=== PATIENT | female | born 1990 | race Caucasian/White ===

== ENCOUNTER 2016-08-31 17:46 | Inpatient (IN) | payer OTHER ==
[~2016-08-31] VITALS: Ht 154.9 cm; Wt 55.3 kg
[2016-08-31] VITALS (24 sets, daily range): BP systolic 92–130; BP diastolic 49–88; PULSE 71–117
[~2016-08-31 17:46] MED LIST: BUPR2SUB SL; SUMA25 PO
[2016-08-31] MEDS ORDERED: LACTATED RINGER'S 1000 ML INJ 1,000 ML IV SCH (18:28)
[2016-08-31] MEDS ORDERED: LACTATED RINGER'S 1000 ML INJ 1,000 ML IV PRN (18:28)
[2016-08-31] MEDS ORDERED: LIDOCAINE HCL 1% 50 ML VIAL INFIL PRN (18:30)
[2016-08-31] MEDS ORDERED: OXYTOCIN 30 UNITS-500ML PREMIX 500 ML IV ONE (18:30)
[2016-08-31] MEDS ORDERED: LIDOCAINE HCL 1% 50 ML VIAL I-DERMAL PRN (18:30)
[2016-08-31] MEDS ORDERED: SODIUM CHLORID 0.9% 500 ML INJ 500 ML IV PRN (18:30)
[2016-08-31] MEDS ORDERED: CITRIC ACID-SODIUM CITRATE LIQ 30 ML UDC PO SCH (18:30)
[2016-08-31] MEDS ORDERED: MINERAL OIL 10 ML VIAL TOPICAL PRN (18:30)
[2016-08-31] MEDS ORDERED: ONDANSETRON HCL 4 MG/2 ML VIAL IV PRN (18:30)
[2016-08-31] MEDS ORDERED: SODIUM CHLOR 0.9% 1000 ML INJ 1,000 ML IV PRN (18:48)
[2016-08-31 19:32] LABS: AUTOMATED NEUTROPHIL # 9.9 TH/MM3 (1.8-7.7); BASOPHIL # 0.1 TH/MM3 (0-0.2); BASOPHIL % 0.4 % (0.0-2.0); EOSINOPHIL % 0.3 % (0.0-4.0); HEMO FLAGS DIFF FINAL; LYMPH % 17.3 % (9.0-44.0); LYMPHOCYTE # 2.2 TH/MM3 (1.0-4.8); MEAN CELL VOLUME 89.2 FL (80.0-100.0); MEAN CORPUSCULAR HEMOGLOBIN 29.3 PG (27.0-34.0); MEAN CORPUSCULAR HGB CONC 32.8 % (32.0-36.0); PLATELET COUNT 222 TH/MM3 (150-450); RED BLOOD COUNT 3.81 MIL/MM3 (4.00-5.30); RED CELL DISTRIBUTION WIDTH 13.5 % (11.6-17.2); WHITE BLOOD COUNT 12.9 TH/MM3 (4.0-11.0)
[2016-08-31 19:34] LABS: BLOOD, URINE NEG (NEG); COMMENT (UR) CULT NOT INDICATED; CULTURE IF INDICATED CULT NOT INDICATED; GLUCOSE,URINE NEG (NEG); KETONE, URINE NEG (NEG); NITRITE,URINE NEG (NEG); SQUAMOUS EPITHELIAL CELL URINE <1 /hpf (0-5); URINE COLOR LIGHT-YELLOW (YELLW/STRAW)
[2016-08-31] MEDS ORDERED: fentaNYL 2MCG-BUPIV 0.125% INJ 100 ML ONE (19:35)
[2016-08-31 19:42] LABS: AMPHETAMINE, URINE NEG (NEG); BARBITURATES, URINE NEG (NEG); COCAINE, URINE NEG (NEG)
--- NOTE | 2016-08-31 20:01 | PD ---
HPI Chief Complaint Labor Date Seen: Aug 31, 2016 Time Seen: 19:48 (Sarah Zee MD R1) Travel History International Travel<30 Days: No Contact w/Intl Traveler<30Days: No Known Affected Area: No (Sarah Zee MD R1) History of Present Illness HPI Patient is a 26 year old at 38 and 3/7 weeks gestation, BETHANY 09/11/2016, who presents to the OB ED with labor pains. She denies leakage of fluid, vaginal bleeding, and contractions. She feels baby moving regularly. She denies WELCH/N/V/D /fever/sick contacts/SOB/calf pain/dizziness/seeing spots. OB care is with [facility] (Dr. Petersen) and reports normal PNC. She is taking Subutex 8mg daily since at least 2014 (reports some periods of taking up to 16mg daily prior to this ). She endorses tobacco use as well. Para: 1 : 4 (Sarah Zee MD R1) History Past Medical History Medical History: Denies Significant Hx (Sarah Zee MD R1) Obstetric History Obstetric History One elective AB One ectopic 1 term in 2014, term female, nursery/NICU for 4 total weeks for withdrawal treatment (Sarah Zee MD R1) Past Surgical History Narrative Surgical Left fallopian tube removed in 2011 (ectopic) (Sarah Zee MD R1) Family History Narrative Family History Mother and father with lupus Mother with RA as well (Sarah Zee MD R1) Social History Alcohol Use: No Tobacco Use: Yes (1 cigarette per day) Substance Abuse: Yes (Subutex 8 mg daily entire , 16 mg prior to knowing she was ) (Sarah Zee MD R1) Allergies-Medications (Allergen,Severity, Reaction): Coded Allergies: No Known Allergies (Verified , 03/29/15) Home Meds Reported Medications Buprenorphine 2 mg tab 2 mg Tab1 Tab SL BID 03/04/15 Discontinued Scripts Sumatriptan Succinate (Imitrex 25 Mg Tab)25 Mg Tab25 Mg PO BID PRN (MIGRAINE HEADACHE) #10 TAB MAY REPEAT X 1 IN 2 HOURS Prov:Rosemary Goodman MD 11/01/15 Review of Systems Except as stated in HPI: all other systems reviewed are Neg (Sarah Zee MD R1) Physical Exam Narrative GENERAL: Well-nourished, well-developed female who appears mildly uncomfortable. SKIN: Warm and dry. No rashes. HEAD: Normocephalic and atraumatic. EYES: No scleral icterus. No injection or drainage. ENT: No nasal drainage noted. Mucous membranes pink. Airway patent. NECK: Supple, trachea midline. No JVD. CARDIOVASCULAR: Regular rate and rhythm without murmurs, gallops, or rubs. RESPIRATORY: Breath sounds equal bilaterally. No accessory muscle use. BREASTS: Bilateral exam showed no masses , no retractions, no nipple discharge. ABDOMEN/GI: Abdomen soft, non-tender, bowel sounds present, no rebound, no guarding GENITOURINARY: External Genitalia: intact and normal in appearance Cervix: 4/80%/1 Presentation: Vertex Membranes: Intact Uterine Contractions: irregular CTX, irritability noted FHT's: Category: 1 Baseline: 130 Reactive: y to 150 Variability: mod Decels: absent EXTREMITIES: No cyanosis or edema. BACK: Nontender without obvious deformity. No CVA tenderness. NEUROLOGICAL: Awake and alert. Motor and sensory grossly within normal limits. Five out of 5 muscle strength in all muscle groups. Normal speech. (Sarah Zee MD R1) Data Data Vital Signs Reviewed: Yes (BP 130/88, pulse 83) Orders Admit To Inpatient (08/31/16 ) Code Status (08/31/16 18:28) Vital Signs (Adult) .Per protocol (08/31/16 18:28) Heart (08/31/16 18:28) Amnioinfusion (08/31/16 18:28) Urinary Catheter Management .ONCE (08/31/16 18:28) Diet Npo (08/31/16 Dinner) Lactated Ringer's 1000 Ml Inj (Lr 1000 M (08/31/16 18:28) Lactated Ringer's 1000 Ml Inj (Lr 1000 M (08/31/16 18:28) Sodium Chlorid 0.9% 500 Ml Inj (Ns 500 M (08/31/16 18:30) Sodium Chlor 0.9% 1000 Ml Inj (Ns 1000 M (08/31/16 18:48) Lidocaine 1% Inj (50 Ml) (Xylocaine 1% I (08/31/16 18:30) Citric Acid-Sodium Citrate Liq (Bicitra (08/31/16 18:30) Ondansetron Inj (Zofran Inj) (08/31/16 18:30) Fentanyl Inj (Fentanyl Inj) (08/31/16 18:30) Fentanyl Inj (Fentanyl Inj) (08/31/16 18:30) Complete Blood Count With Diff (08/31/16 18:28) Hold Clot (08/31/16 18:28) Abo/Rh Blood Type (08/31/16 18:28) Urinalysis - C+S If Indicated (08/31/16 18:28) Rapid Plasma Regin (Rpr) W Ttr (08/31/16 18:28) Hepatitis Profile (08/31/16 18:28) No Care Spec Serology (08/31/16 18:28) Resp Oxygen Non Rebreathe Mask (08/31/16 ) ^ Epidural / Intrathecal Infus (08/31/16 18:28) Oxytocin 30 Units-500ml Premix (Pitocin (08/31/16 18:30) Lidocaine 1% Inj (50 Ml) (Xylocaine 1% I (08/31/16 18:30) Light Mineral Oil (Muri-Lube Oil) (08/31/16 18:30) Group B Strep Pcr (Rapid) (08/31/16 18:28) Inpatient Certification (08/31/16 ) Ob/Psych Drug Screen, Urine (08/31/16 18:31) Ob (2e) Additional Admit Info (08/31/16 19:30) Fentanyl 2mcg-Bupiv 0.125% Inj (Fentanyl (08/31/16 19:35) Ur Bath Salts (08/31/16 18:35) Ur Heroin (08/31/16 18:35) Ur K2 Spice (08/31/16 18:35) Ur Ecstasy (08/31/16 18:35) Phencyclidine Urine (Pcp) (08/31/16 18:35) (Sarah Zee MD R1) MDM Medical Record Reviewed: Yes Narrative Course / MDM 26-year-old 38 weeks and 3 days who presents to the OB ED with contractions and is admitted for labor. Intrauterine : Category 1 tracing Vaginal delivery expected Memory is intact Desires epidural for pain CBC pending U/A pending All labs ordered given no access to labs from [facility] IV fluids Monitor heart tones Routine care Subutex use complicating : Reports 8 mg daily, up to 16 mg in early Tobacco use complicating GBS unknown: Rapid GBS ordered, will start IV penicillin per protocol if positive SDW Dr. Landon (Sarah Zee MD R1) Attending Attestation The exam, history, and the medical decision-making described in the above note were completed with the assistance of the resident provider. I reviewed and agree with the findings presented. I attest that I had a [id number] encounter with the patient on the same day, and personally performed and documented my assessment and findings in the medical record. (Juan Landon MD) Sarah Zee MD R1 Aug 31, 2016 20:01 Juan Landon MD Aug 31, 2016 20:08
[2016-08-31] MEDS ORDERED: ePHEDrine/NS 25 MG/5 ML SYR IV PRN (21:00)
[2016-08-31] MEDS ORDERED: NO SYSTEM NARCOTICS PRN (21:00)
[2016-08-31] MEDS ORDERED: fentaNYL 2MCG-BUPIV 0.125% 100 ML EPIDURAL SCH (21:00)
[2016-08-31] MEDS ORDERED: DO NOT ADMINISTER ANTICOAGULANTS PRN (21:00)
--- NOTE | 2016-08-31 23:09 | PD.LABORPN ---
Subjective Subjective 26-year-old 38 weeks and 3 days who presented to the OB ED with contractions and is admitted for labor. Subutex use complicating : Reports 8 mg daily, up to 16 mg in early Tobacco use complicating GBS negative: Rapid GBS ordered, decided to AROM and start pitocin after GBS returned negative. AROM discussed with patient who consented to AROM. Objective Vital Signs Vital Signs Date Time Temp Pulse Resp B/P Pulse Ox O2 Delivery O2 Flow Rate FiO2 08/31/16 22:45 76 110/73 08/31/16 22:30 74 108/78 08/31/16 22:15 71 111/74 08/31/16 22:00 76 109/75 08/31/16 21:45 102 109/71 08/31/16 21:30 117 112/85 08/31/16 21:15 92 115/73 08/31/16 21:11 82 114/68 08/31/16 21:10 88 92/49 08/31/16 21:05 89 115/82 08/31/16 21:00 81 111/74 08/31/16 21:00 94 08/31/16 20:55 106 08/31/16 20:55 97 114/70 08/31/16 20:50 90 08/31/16 20:50 82 124/84 08/31/16 20:45 107 103/76 08/31/16 20:45 106 08/31/16 20:40 100 08/31/16 20:40 117 106/71 08/31/16 20:35 96 110/68 08/31/16 20:35 89 08/31/16 20:30 89 119/74 08/31/16 20:30 87 08/31/16 20:25 89 116/74 08/31/16 20:25 84 08/31/16 20:24 88 119/77 08/31/16 19:35 83 130/88 Objective Pelvic Exam: Cervix: [anterior] Dilatation: [5cm] Effacement: [80%] Station: [0] Presentation: [vertex] Membranes: [artificially ruptured with moderate clear odorless ROM] Uterine Contractions: [inconsistent, fewer than q10min] FHT's: Category: [Category I] Baseline: [125] Reactive: [reactive] Variability: [moderate] Decels: [none] Assessment/Plan Problem List: (1) Labor and delivery indication for care or intervention (2) Labor and delivery, indication for care (3) Tobacco use complicating (4) complicated by subutex maintenance, antepartum Assessment and Plan 26-year-old 38 weeks and 3 days who presented to the OB ED with contractions and is admitted for labor. Epidural in place. GBS negative, so AROM and IUPC placed, and can start Pitocin. 1. Subutex use complicating : Reports 8 mg daily, up to 16 mg in early 2. Tobacco use complicating 3. GBS negative: Rapid GBS returned negative, so decided to AROM and start Pitocin. AROM discussed with patient who consented to AROM. Artificially ruptured with moderate clear odorless ROM. IUPC also placed at that time. -anticipate -continue Pitocin s/d/w Baldomero Bernard MD R1 Aug 31, 2016 23:09
--- NOTE | 2016-08-31 23:13 | HHI.HP ---
History & Physical H&P HPI Chief Complaint Labor Date Seen: Aug 31, 2016 Time Seen: 19:48 (Sarah Zee MD R1) Travel History International Travel<30 Days: No Contact w/Intl Traveler<30Days: No Known Affected Area: No (Sarah Zee MD R1) History of Present Illness HPI Patient is a 26 year old at 38 and 3/7 weeks gestation, BETHANY 09/11/2016, who presents to the OB ED with labor pains. She denies leakage of fluid, vaginal bleeding, and contractions. She feels baby moving regularly. She denies WELCH/N/V/D /fever/sick contacts/SOB/calf pain/dizziness/seeing spots. OB care is with [facility] (Dr. Petersen) and reports normal PNC. She is taking Subutex 8mg daily since at least 2014 (reports some periods of taking up to 16mg daily prior to this ). She endorses tobacco use as well. Para: 1 : 4 (Sarah Zee MD R1) History Past Medical History Medical History: Denies Significant Hx (Sarah Zee MD R1) Obstetric History Obstetric History One elective AB One ectopic 1 term in 2014, term female, nursery/NICU for 4 total weeks for withdrawal treatment (Sarah Zee MD R1) Past Surgical History Narrative Surgical Left fallopian tube removed in 2011 (ectopic) (Sarah Zee MD R1) Family History Narrative Family History Mother and father with lupus Mother with RA as well (Sarah Zee MD R1) Social History Alcohol Use: No Tobacco Use: Yes (1 cigarette per day) Substance Abuse: Yes (Subutex 8 mg daily entire , 16 mg prior to knowing she was ) (Sarah Zee MD R1) Allergies-Medications (Allergen,Severity, Reaction): Coded Allergies: No Known Allergies (Verified , 03/29/15) Home Meds Reported Medications Buprenorphine 2 mg tab 2 mg Tab1 Tab SL BID 03/04/15 Discontinued Scripts Sumatriptan Succinate (Imitrex 25 Mg Tab)25 Mg Tab25 Mg PO BID PRN (MIGRAINE HEADACHE) #10 TAB MAY REPEAT X 1 IN 2 HOURS Prov:Rosemary Goodman MD 11/01/15 Review of Systems Except as stated in HPI: all other systems reviewed are Neg (Sarah Zee MD R1) Physical Exam Narrative GENERAL: Well-nourished, well-developed female who appears mildly uncomfortable. SKIN: Warm and dry. No rashes. HEAD: Normocephalic and atraumatic. EYES: No scleral icterus. No injection or drainage. ENT: No nasal drainage noted. Mucous membranes pink. Airway patent. NECK: Supple, trachea midline. No JVD. CARDIOVASCULAR: Regular rate and rhythm without murmurs, gallops, or rubs. RESPIRATORY: Breath sounds equal bilaterally. No accessory muscle use. BREASTS: Bilateral exam showed no masses , no retractions, no nipple discharge. ABDOMEN/GI: Abdomen soft, non-tender, bowel sounds present, no rebound, no guarding GENITOURINARY: External Genitalia: intact and normal in appearance Cervix: 4/80%/1 Presentation: Vertex Membranes: Intact Uterine Contractions: irregular CTX, irritability noted FHT's: Category: 1 Baseline: 130 Reactive: y to 150 Variability: mod Decels: absent EXTREMITIES: No cyanosis or edema. BACK: Nontender without obvious deformity. No CVA tenderness. NEUROLOGICAL: Awake and alert. Motor and sensory grossly within normal limits. Five out of 5 muscle strength in all muscle groups. Normal speech. (Sarah Zee MD R1) Data Data Vital Signs Reviewed: Yes (BP 130/88, pulse 83) Orders Admit To Inpatient (08/31/16 ) Code Status (08/31/16 18:28) Vital Signs (Adult) .Per protocol (08/31/16 18:28) Heart (08/31/16 18:28) Amnioinfusion (08/31/16 18:28) Urinary Catheter Management .ONCE (08/31/16 18:28) Diet Npo (08/31/16 Dinner) Lactated Ringer's 1000 Ml Inj (Lr 1000 M (08/31/16 18:28) Lactated Ringer's 1000 Ml Inj (Lr 1000 M (08/31/16 18:28) Sodium Chlorid 0.9% 500 Ml Inj (Ns 500 M (08/31/16 18:30) Sodium Chlor 0.9% 1000 Ml Inj (Ns 1000 M (08/31/16 18:48) Lidocaine 1% Inj (50 Ml) (Xylocaine 1% I (08/31/16 18:30) Citric Acid-Sodium Citrate Liq (Bicitra (08/31/16 18:30) Ondansetron Inj (Zofran Inj) (08/31/16 18:30) Fentanyl Inj (Fentanyl Inj) (08/31/16 18:30) Fentanyl Inj (Fentanyl Inj) (08/31/16 18:30) Complete Blood Count With Diff (08/31/16 18:28) Hold Clot (08/31/16 18:28) Abo/Rh Blood Type (08/31/16 18:28) Urinalysis - C+S If Indicated (08/31/16 18:28) Rapid Plasma Regin (Rpr) W Ttr (08/31/16 18:28) Hepatitis Profile (08/31/16 18:28) No Care Spec Serology (08/31/16 18:28) Resp Oxygen Non Rebreathe Mask (08/31/16 ) ^ Epidural / Intrathecal Infus (08/31/16 18:28) Oxytocin 30 Units-500ml Premix (Pitocin (08/31/16 18:30) Lidocaine 1% Inj (50 Ml) (Xylocaine 1% I (08/31/16 18:30) Light Mineral Oil (Muri-Lube Oil) (08/31/16 18:30) Group B Strep Pcr (Rapid) (08/31/16 18:28) Inpatient Certification (08/31/16 ) Ob/Psych Drug Screen, Urine (08/31/16 18:31) Ob (2e) Additional Admit Info (08/31/16 19:30) Fentanyl 2mcg-Bupiv 0.125% Inj (Fentanyl (08/31/16 19:35) Ur Bath Salts (08/31/16 18:35) Ur Heroin (08/31/16 18:35) Ur K2 Spice (08/31/16 18:35) Ur Ecstasy (08/31/16 18:35) Phencyclidine Urine (Pcp) (08/31/16 18:35) (Sarah Zee MD R1) MDM Medical Record Reviewed: Yes Narrative Course / MDM 26-year-old 38 weeks and 3 days who presents to the OB ED with contractions and is admitted for labor. Intrauterine : Category 1 tracing Vaginal delivery expected Membranes intact Epidural for pain in place CBC shows mild leukocytosis and anemia U/A reassuring All labs ordered given no access to labs from [facility] IV fluids Monitor heart tones Routine care Subutex use complicating : Reports 8 mg daily, up to 16 mg in early Tobacco use complicating GBS negative: Rapid GBS ordered. After GBS negative, decided to AROM and start pitocin. SDW Dr. Colunga (Baldomero Flowers MD R1) H&P The exam, history, and the medical decision-making described in the above note were completed with the assistance of the resident provider. I reviewed and agree with the findings presented. I attest that I had a [id number] encounter with the patient on the same day, and personally performed and documented my assessment and findings in the medical record. (Juan Landon MD) Baldomero Flowers MD R1 Aug 31, 2016 23:13 Juan Landon MD Sep 01, 2016 00:16
[2016-09-01] VITALS (12 sets, daily range): BP systolic 90–123; BP diastolic 64–86; PULSE 68–188; RESP 18; TEMP 98.2–98.4
--- NOTE | 2016-09-01 01:08 | PD.OB.DELI ---
Delivery Date: Sep 01, 2016 Anesthesia: Epidural Episiotomy: None Vaginal Delivery: Normal Presentation: Occiput anterior Nuchal Cord: None Delayed cord clamping (45 sec): Yes : Female One Minute : 8 Five Minute : 8 Weight: 2750g Placenta: Spontaneous delivery, Intact, 3 vessel cord Laceration: Vaginal laceration (superficial periurethral lacerations hemostatic without intervention) Additional Information Uncomplicated performed by Dr. Flowers. Assisted by Dr. Colunga. Supervised by Dr. Landon. (Baldomero Flowers MD R1) Attestation I was present and directly supervised the entire delivery. (Juan Landon MD) Baldomero Flowers MD R1 Sep 01, 2016 01:08 Juan Landon MD Sep 01, 2016 01:15
[2016-09-01] MEDS ORDERED: SODIUM CHLORIDE 0.9% FLUSH 10 ML FLUSH IV FLUSH PRN (01:15)
[2016-09-01] MEDS ORDERED: ZOLPIDEM TARTRATE 5 MG TAB PO PRN (01:15)
[2016-09-01] MEDS ORDERED: ONDANSETRON ODT 4 MG TAB PO PRN (01:15)
[2016-09-01] MEDS ORDERED: DOCUSATE SODIUM 50 MG/SENNA 8.6 MG TAB PO PRN (01:15)
[2016-09-01] MEDS ORDERED: oxyCODONE/ACETAMINOPHEN 5 MG/325 MG TAB PO PRN ×2 (01:15)
[2016-09-01] MEDS ORDERED: IBUPROFEN 800 MG TAB PO PRN (01:15)
[2016-09-01] MEDS ORDERED: ALUMINUM/MAGNESIUM/SIMETH 30 ML CUP PO PRN (01:15)
[2016-09-01] MEDS ORDERED: WITCH HAZEL 50%/GLYCERIN 12.5% 40 PAD JAR TOPICAL PRN (01:15)
[2016-09-01] MEDS ORDERED: BENZOCAINE 20% TOPICAL SPRAY 60 ML CAN TOPICAL PRN (01:15)
--- NOTE | 2016-09-01 06:56 | HHI.OB ---
Subjective Post Day: 0 Remarks day #0. AFVSS overnight. Decreased lochia. Denies dysuria. No breast tenderness. She is feeding the baby via breast. Appetite good. No nausea or vomiting. She has some pelvic pain and abdominal cramping. She is taking Tylenol as needed for this. She'll be bringing her Subutex in from home to take. Ambulating well. Denies calf pain or shortness of breath. Otherwise, she is doing well this morning and has no other concerns. (Sarah Zee MD R1) Objective Vitals/I&O Vital Signs Date Time Temp Pulse Resp B/P Pulse Ox O2 Delivery O2 Flow Rate FiO2 09/01/16 03:20 98.3 68 18 09/01/16 03:20 123/84 09/01/16 02:00 18 09/01/16 01:45 18 09/01/16 01:31 69 90/71 09/01/16 01:30 18 09/01/16 01:15 18 09/01/16 01:15 84 123/81 09/01/16 01:00 98.4 18 09/01/16 01:00 74 116/82 09/01/16 00:46 78 105/64 09/01/16 00:15 188 107/86 09/01/16 00:00 80 101/65 08/31/16 23:45 72 102/56 08/31/16 23:30 78 115/73 08/31/16 23:15 96 100/68 08/31/16 23:00 75 108/75 08/31/16 22:45 76 110/73 08/31/16 22:30 74 108/78 08/31/16 22:15 71 111/74 08/31/16 22:00 76 109/75 08/31/16 21:45 102 109/71 08/31/16 21:30 117 112/85 08/31/16 21:15 92 115/73 08/31/16 21:11 82 114/68 08/31/16 21:10 88 92/49 08/31/16 21:05 89 115/82 08/31/16 21:00 81 111/74 08/31/16 21:00 94 08/31/16 20:55 106 08/31/16 20:55 97 114/70 08/31/16 20:50 90 08/31/16 20:50 82 124/84 08/31/16 20:45 107 103/76 08/31/16 20:45 106 08/31/16 20:40 100 08/31/16 20:40 117 106/71 08/31/16 20:35 96 110/68 08/31/16 20:35 89 08/31/16 20:30 89 119/74 08/31/16 20:30 87 08/31/16 20:25 89 116/74 08/31/16 20:25 84 08/31/16 20:24 88 119/77 08/31/16 19:35 83 130/88 Objective Remarks GENERAL: Well-nourished, well-developed female in no apparent distress. CARDIOVASCULAR: Regular rate and rhythm without murmurs, gallops, or rubs. RESPIRATORY: Breath sounds equal bilaterally. No accessory muscle use. ABDOMEN/GI: Abdomen soft, non-tender. Fundus: Firm, non-tender at umbilicus. GENITOURINARY: Light to moderate bleeding. EXTREMITIES: No cyanosis or edema, non-tender, without signs of DVT. Medications and IVs Current Medications Medications (Trade) Dose Ordered Sig/Rashid Route Start Time Stop Time Status Last Admin (NS Flush) 2 ml BID IV FLUSH 09/01/16 09:00 (NS Flush) 2 ml UNSCH PRN IV FLUSH 09/01/16 01:15 (Tylenol) 650 mg Q4H PRN PO 09/01/16 01:15 (Motrin) 600 mg Q6H PRN PO 09/01/16 01:15 (Americaine 20% Top Spr) 1 spray Q4H PRN TOPICAL 09/01/16 01:15 (Tucks Pads) 1 applic QID PRN TOPICAL 09/01/16 01:15 (Yaritza-Colace) 2 tab Q12H PRN PO 09/01/16 01:15 (Ambien) 5 mg HS PRN PO 09/01/16 01:15 (M-M-R Ii Inj) 0.5 ml ONCE ONCE SQ 09/01/16 16:00 09/01/16 16:01 (Boostrix Inj) 0.5 ml ONCE ONCE IM 09/01/16 16:00 09/01/16 16:01 (Mag-Al Plus Susp Liq) 15 ml Q8H PRN PO 09/01/16 01:15 (Zofran Odt) 4 mg Q6H PRN PO 09/01/16 01:15 (Sarah Zee MD R1) Assessment/Plan Problem List: (1) Labor and delivery indication for care or intervention (2) Labor and delivery, indication for care (3) Tobacco use complicating (4) complicated by subutex maintenance, antepartum Assessment and Plan 26-year-old G4 P now 2 female who is PPD# 0 s/p . care: -Continue routine care. -Tylenol and Motrin PRN pain. -Encouraged OOB. Advised pelvic rest for 6 wks. -Re: ctrl, she would like to use Loestrin OCPs. -Anticipate discharge in 1-2 days. Subutex use complicating : Reports 8 mg daily, up to 16 mg in early . She will continue using her home medication when she brings it in Tobacco use complicating GBS negative Will discuss with Dr. Landon (Sarah Zee MD R1) Attending Attestation The exam, history, and the medical decision-making described in the above note were completed with the assistance of the resident provider. I reviewed and agree with the findings presented. I attest that I had a [id number] encounter with the patient on the same day, and personally performed and documented my assessment and findings in the medical record. (Juan Landon MD) Sarah Zee MD R1 Sep 01, 2016 06:56 Juan Landon MD Sep 01, 2016 08:51
[2016-09-01] MEDS: IBUPROFEN 600 MG TAB PO PRN ×3 (08:22→21:09)
[2016-09-01] MEDS: ACETAMINOPHEN 325 MG TAB PO PRN ×3 (08:23→21:09)
[2016-09-01] MEDS ORDERED: SODIUM CHLORIDE 0.9% FLUSH 10 ML FLUSH IV FLUSH SCH (09:00)
[2016-09-01 10:26] LABS: RAPID PLASMA REAGIN SCREEN NON-REACTIVE (NON-REACTVE)
[2016-09-01] MEDS ORDERED: DIPHTH/TETANUS/ACEL PERTUSSIS (BOOSTER) 0.5 ML VIAL/PFS IM ONE (16:00)
[2016-09-01] MEDS ORDERED: MEASLES, MUMPS, RUBELLA VACCINE 0.5 ML VIAL SQ ONE (16:00)
[2016-09-02] MEDS: BUPRENORPHINE 2 MG SL SCH ×2 (00:36→09:34)
[2016-09-02] MEDS: ACETAMINOPHEN 325 MG TAB PO PRN ×2 (01:49→09:34)
[2016-09-02] MEDS: IBUPROFEN 600 MG TAB PO PRN ×2 (03:20→09:33)
--- NOTE | 2016-09-02 07:06 | HHI.OB ---
Subjective Remarks day # 1 AFVSS overnight. Decreased lochia. Denies dysuria. No breast tenderness. She is feeding the baby via formula. Appetite good. No nausea or vomiting. Positive flatus/bowel movement. Ambulating well. Denies calf pain or shortness of breath. Otherwise, she is doing well this morning. ( Olga Aguilera MD R2) Objective Vitals/I&O Vital Signs Date Time Temp Pulse Resp B/P Pulse Ox O2 Delivery O2 Flow Rate FiO2 09/01/16 21:00 98.2 75 18 120/85 09/01/16 08:30 98.4 74 18 108/68 Objective Remarks GENERAL: Well-nourished, well-developed female in no apparent distress. CARDIOVASCULAR: Regular rate and rhythm without murmurs, gallops, or rubs. RESPIRATORY: Breath sounds equal bilaterally. No accessory muscle use. ABDOMEN/GI: Abdomen soft, non-tender. Fundus: Firm, non-tender at umbilicus. GENITOURINARY: Light to moderate bleeding. EXTREMITIES: No cyanosis or edema, non-tender, without signs of DVT. Medications and IVs Current Medications Medications (Trade) Dose Ordered Sig/Rashid Route Start Time Stop Time Status Last Admin (NS Flush) 2 ml BID IV FLUSH 09/01/16 09:00 (NS Flush) 2 ml UNSCH PRN IV FLUSH 09/01/16 01:15 (Tylenol) 650 mg Q4H PRN PO 09/01/16 01:15 09/02/16 01:49 (Motrin) 600 mg Q6H PRN PO 09/01/16 01:15 09/02/16 03:20 (Americaine 20% Top Spr) 1 spray Q4H PRN TOPICAL 09/01/16 01:15 (Tucks Pads) 1 applic QID PRN TOPICAL 09/01/16 01:15 (Yaritza-Colace) 2 tab Q12H PRN PO 09/01/16 01:15 09/01/16 08:23 (Ambien) 5 mg HS PRN PO 09/01/16 01:15 (Mag-Al Plus Susp Liq) 15 ml Q8H PRN PO 09/01/16 01:15 (Zofran Odt) 4 mg Q6H PRN PO 09/01/16 01:15 Patient Own Medication PT OWN MED: BUPRENORPHINE 2MG SL BID BID SL 09/01/16 21:00 (Olga Aguilera MD R2) Assessment/Plan Problem List: (1) Labor and delivery indication for care or intervention (2) Labor and delivery, indication for care (3) Tobacco use complicating (4) complicated by subutex maintenance, antepartum Assessment and Plan 26-year-old PPD# 1 s/p . care: -Continue routine care. -Tylenol and Motrin PRN pain. -Encouraged OOB. Advised pelvic rest for 6 wks. -Re: ctrl, she would like to use Loestrin OCPs. -Anticipate discharge today or tomorrow. Subutex use complicating : Reports 8 mg daily, up to 16 mg in early . She will continue using her home medication when she brings it in Tobacco use complicating GBS negative dw Dr. Uriarte and Dr. Lance Zee R1 (Olga Aguilera MD R2) Attending Attestation May d/c home today if desired. Agree with above. (Janet Uriarte MD) Olga Aguilera MD R2 Sep 02, 2016 07:06 Janet Uriarte MD Sep 02, 2016 08:39
[2016-09-02] MEDS ORDERED: IBUP-232 PO (07:07)
[2016-09-02] MEDS ORDERED: SENN1TAB PO (07:07)
--- NOTE | 2016-09-02 07:08 | HHI.DCPOC ---
Discharge Care Plan Diagnosis: (1) (spontaneous vaginal delivery) Report Symptoms to Your Doctor -Temperature above 100.5 degrees -Redness, of incision or excessive or foul smelling drainage -Unusual pain or calf pain -Increased vaginal bleeding -Painful or difficulty urinating -Feelings of extreme sadness or anxiety after 2 weeks Goals to Promote Your Health * To prevent worsening of your condition and complications * To maintain your health at the optimal level Directions to Meet Your Goals Take your medications as prescribed Follow your dietary instruction Follow activity as directed Ensure plenty of rest for recovery Drink fluids for hydration Keep your appointments as scheduled Take your immunizations and boosters as scheduled If your symptoms worsen call your PCP, if no PCP go to Urgent Care Center or Emergency Room Smoking is Dangerous to Your Health. Avoid second hand smoke Call the 24-hour crisis hotline for domestic abuse at Olga Aguilera MD R2 Sep 02, 2016 07:08
[2016-09-02 07:46] VITALS: BP 112/72; PULSE 76; RESP 18; TEMP 98.3
[2016-09-02 08:26] VITALS: BP 116/82; PULSE 56; RESP 16; TEMP 97.8
[2016-09-04 09:11] LABS: BATH SALTS (MDPV) UR NEG (NEG); ECSTASY (MDMA) UR NEG (NEG); GABAPENTIN UR NEG (NEG); HEROIN (6-ACETYLMORPHINE) UR NEG (NEG); HYDROMORPHONE U NEG (NEG); K2 SPICE UR NEG (NEG); OBMETHADONE UR NEG (NEG); OXYCODONE (PERCODAN) NEG (NEG); PHENCYCLIDINE URINE NEG (NEG)
== END 2016-09-02 14:57 | disposition home or self-care (01) | DRG 775 ==
LOC: HOBED 17:46 → H2EA 19:31 → H1EA 09-01 03:17
PROVIDERS: ADMIT Obstetrics & Gynecology; ATTEND Obstetrics & Gynecology
PROC: 10907ZC Drainage of Amniotic Fluid, Therapeutic from Products of Conception, Via Natural or Artificial Opening (ICD-10-PCS; 2016-08-31)
PROC: 10H07YZ Insertion of Other Device into Products of Conception, Via Natural or Artificial Opening (ICD-10-PCS; 2016-08-31)
PROC: 10E0XZZ Delivery of Products of Conception, External Approach (ICD-10-PCS; principal; 2016-09-01)
DX: O99.324 Drug use complicating childbirth (principal); F11.20 Opioid dependence, uncomplicated; F17.210 Nicotine dependence, cigarettes, uncomplicated; O70.0 First degree perineal laceration during delivery; O99.334 Smoking (tobacco) complicating childbirth; Z3A.38 38 weeks gestation of pregnancy; Z37.0 Single live birth
CPT/HCPCS: 80074; 80307; 81001; 85025; 86592; 86703; 86900; 86901; 87081; 87150; 99285; G0481

== ENCOUNTER 2016-09-04 14:23 | Emergency (ER) | payer OTHER ==
[2016-09-04] VITALS (7 sets, daily range): BP systolic 134–189; BP diastolic 90–111; PULSE 56–129; RESP 14–18; TEMP 98.3; O2SAT 96–100
[~2016-09-04] VITALS: Ht 157.5 cm; Wt 53.0 kg
[~2016-09-04 14:23] MED LIST changes: +IBUP-232 PO; +SENN1TAB PO; -SUMA25 PO
[2016-09-04] MEDS ORDERED: BUPRENORPHINE PO (14:48)
[2016-09-04 14:53] LABS: BLOOD, URINE LARGE (NEG); GLUCOSE,URINE NEG (NEG); KETONE, URINE NEG (NEG); NITRITE,URINE NEG (NEG)
[2016-09-04 14:56] LABS: METHOD OF COLLECTION CLEAN CATCH; URINE COLOR YELLOW (YELLW/STRAW)
[2016-09-04 14:57] LABS: SQUAMOUS EPITHELIAL CELL URINE 0-5 /hpf (0-5)
[2016-09-04 14:58] LABS: COMMENT (UR) CULTURE INDICATED; CULTURE IF INDICATED CULTURE INDICATED
--- NOTE | 2016-09-04 15:02 | PD ---
HPI Chief Complaint: Headache Time Seen by Provider: 14:59 Travel History International Travel<30 days: No Contact w/Intl Traveler<30days: No Traveled to known affect area: No History of Present Illness HPI H/O MIGRAINES, DELIVERED VAGINALLY ON SEPTEMBER 02, NO COMPLICATIONS, DENIES ANY H/O HTN, AND THIS FEELS LIKE HER PREVIOUS MIGRAINES. FRONTAL IN LOCATION, 10/21, NO NECK INVOLVEMENT... DENIES FEVER/N/V/ABDPAIN/CP......PT IS CURRENTLY ON OPIATE WITHDRAWAL MEDICINE, HER / IS IN ICU B/C OF OPIATE WITHDRAWAL. 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) Psychiatric: Yes Reproductive: Yes (HPV-) Respiratory: No Immunizations Current: Yes Migraines: Yes Pneumonia: Yes Radiation Therapy: No Sleep Apnea: No Thyroid Disease: No Tetanus Vaccination: < 5 Years Influenza Vaccination: No PNEUMOCCOCAL Vaccine (Year): 1 ?: Not LMP: Gave 09/02/16 : 2 Miscarriage: 2 Ectopic : Yes (IN MAY 2011) Past Surgical History Abdominal Surgery: Yes (APPENDECTOMY -) Appendectomy: Yes (NOV 2013) Gynecologic Surgery: Yes (LEFT SALPINGOOPHORECTOMY) Pacemaker: No Other Surgery: No Social History Alcohol Use: No Tobacco Use: Yes (1 cigarette per day) Substance Use: No (history of opiate abuse) Allergies-Medications (Allergen,Severity, Reaction): Coded Allergies: No Known Allergies (Verified , 09/04/16) Reported Meds & Prescriptions Reported Meds & Active Scripts Active Ultram (Tramadol HCl) 50 Mg Tab 50 Mg PO Q4H PRN Reported [Buprenorphine] 8 Mg PO DAILY Review of Systems Except as stated in HPI: all other systems reviewed are Neg Eyes: Positive: Photophobia HENT: Positive: Headaches Physical Exam Narrative GENERAL: SKIN: Warm and dry. HEAD: Atraumatic. Normocephalic. EYES: Pupils equal and round. No scleral icterus. No injection or drainage. ENT: No nasal bleeding or discharge. Mucous membranes pink and moist. NECK: Trachea midline. No JVD. CARDIOVASCULAR: Regular rate and rhythm. RESPIRATORY: No accessory muscle use. Clear to auscultation. Breath sounds equal bilaterally. GASTROINTESTINAL: Abdomen soft, non-tender, nondistended. Hepatic and splenic margins not palpable. MUSCULOSKELETAL: Extremities without clubbing, cyanosis, or edema. No obvious deformities. NEUROLOGICAL: Awake and alert. No obvious cranial nerve deficits. Motor grossly within normal limits. Five out of 5 muscle strength in the arms and legs. Normal speech. PSYCHIATRIC: Appropriate mood and affect; insight and judgment normal. Data Data Last Documented VS Orders Urinalysis - C+S If Indicated (09/04/16 14:40) Urine Culture (09/04/16 14:50) Butorphanol Inj (Stadol Inj) (09/04/16 15:15) Ondansetron Odt (Zofran Odt) (09/04/16 15:15) Ct Brain W/O Iv Contrast(Rout) (09/04/16 ) Butorphanol Inj (Stadol Inj) (09/04/16 16:00) Tramadol (Ultram) (09/04/16 16:45) Butorphanol Inj (Stadol Inj) (09/04/16 16:45) Prochlorperazine Inj (Compazine Inj) (09/04/16 17:30) Diphenhydramine Inj (Benadryl Inj) (09/04/16 17:30) Ketorolac Inj (Toradol Inj) (09/04/16 17:30) Clonidine (Catapres) (09/04/16 18:45) Labs MDM Medical Decision Making Medical Screen Exam Complete: Yes Emergency Medical Condition: Yes Medical Record Reviewed: Yes Differential Diagnosis TENSION WELCH V SINUS WELCH VS ICH VS BRAIN MASS Narrative Course PATIENT TOLERATED PO CHALLENGE, PAIN IS MUCH BETTER CONTROLLED AND PHOTOPHOBIA HAS RESOLVED. CT HEAD DID NOT SHOW ANY ICH. WILL D/C Diagnosis Primary Impression: HEADACHE Patient Instructions: Acute Headache (ED), General Instructions Scripts Tramadol (Ultram)50 Mg Tab50 Mg PO Q4H PRN (PAIN) #28 TAB Prov:Cayden Cole MD 09/04/16 Disposition: DISCHARGE HOME Condition: Stable Cayden Cole MD Sep 04, 2016 15:02 Urine Ketones NEG mg/dL Urine Occult Blood LARGE Urine Nitrite NEG Urine Bilirubin NEG Urine Leukocyte Esterase SMALL Urine RBC 25-49 /hpf Urine WBC 9-14 /hpf Urine Squamous Epithelial 0-5 /hpf Cells Microscopic Urinalysis Comment CULTURE INDICATED MDM Medical Decision Making Medical Screen Exam Complete: Yes Emergency Medical Condition: Yes Medical Record Reviewed: Yes Differential Diagnosis TENSION WELCH V SINUS WELCH VS ICH VS BRAIN MASS Narrative Course PATIENT TOLERATED PO CHALLENGE, PAIN IS MUCH BETTER CONTROLLED AND PHOTOPHOBIA HAS RESOLVED. CT HEAD DID NOT SHOW ANY ICH. WILL D/C Diagnosis Primary Impression: HEADACHE Patient Instructions: Acute Headache (ED), General Instructions Scripts Tramadol (Ultram)50 Mg Tab50 Mg PO Q4H PRN (PAIN) #28 TAB Prov:Cayden Cole MD 09/04/16 Disposition: DISCHARGE HOME Condition: Stable Cayden Cole MD Sep 04, 2016 15:02
[2016-09-04] MEDS ORDERED: BUTORPHANOL TARTRATE INJ 2 MG/ML VIAL IM ONE ×3 (15:15→16:45)
[2016-09-04] MEDS ORDERED: ONDANSETRON ODT 4 MG TAB PO ONE (15:15)
--- NOTE | 2016-09-04 16:12 | RADRPT ---
EXAM DATE/TIME: 09/04/2016 15:14 [facility] COMPARISON: No previous studies available for comparison. INDICATIONS : Migraine with nausea and vomiting. RADIATION DOSE: 62.56 CTDIvol (mGy) MEDICAL HISTORY : Patient just had a baby 3 days ago. SURGICAL HISTORY : None. ENCOUNTER: Initial ACUITY: 1 day PAIN SCALE: 10/10 LOCATION: Bilateral cranial TECHNIQUE: Multiple contiguous axial images were obtained of the head. Using automated exposure control and adj ustment of the mA and/or kV according to patient size, radiation dose was kept as low as reasonably a chievable to obtain optimal diagnostic quality images. DICOM format image data is available electro nically for review and comparison. FINDINGS: CEREBRUM: The ventricles are normal for age. No evidence of midline shift, mass lesion, hemorrhage or acute in farction. No extra-axial fluid collections are seen. POSTERIOR FOSSA: The cerebellum and brainstem are intact. The 4th ventricle is midline. The cerebellopontine angle i s unremarkable. EXTRACRANIAL: The visualized portion of the orbits is intact. SKULL: The calvaria is intact. No evidence of skull fracture. CONCLUSION: Normal examination. Delfino Arceo MD on September 04, 2016 at 16:10 Board Certified Radiologist. This report was verified electronically.
[2016-09-04] MEDS ORDERED: ULTR50TA5 PO (16:34)
[2016-09-04] MEDS ORDERED: traMADol HCL 50 MG TAB PO ONE (16:45)
[2016-09-04] MEDS ORDERED: KETOROLAC TROMETHAMINE 60 MG/2 ML (IM) VIAL IM ONE (17:30)
[2016-09-04] MEDS ORDERED: diphenhydrAMINE HCL 50 MG/ML VIAL IM ONE (17:30)
[2016-09-04] MEDS ORDERED: PROCHLORPERAZINE INJ 10 MG/2 ML VIAL IM ONE (17:30)
[2016-09-04] MEDS ORDERED: cloNIDine HCL 0.1 MG TAB PO ONE (18:45)
== END 2016-09-04 19:11 | disposition home or self-care (01) ==
LOC: PHEFT 14:23
DX: R51 Headache (principal); F11.23 Opioid dependence with withdrawal; F41.8 Other specified anxiety disorders; Z72.0 Tobacco use
CPT/HCPCS: 70450; 81001; 87086; 96372; 99285; J0595; J0780; J1200; J1885

== ENCOUNTER 2017-01-31 19:14 | Emergency (ER) | payer OTHER ==
[~2017-01-31] VITALS: Ht 157.5 cm; Wt 43.0 kg
[~2017-01-31 19:14] MED LIST changes: -BUPR2SUB SL; +BUPRENORPHINE PO; -IBUP-232 PO; -SENN1TAB PO; +TRAM50 PO
[2017-01-31 19:15] VITALS: BP 107/51; PULSE 66; RESP 14; TEMP 98.2; O2SAT 95
[2017-01-31] MEDS ORDERED: SODIUM CHLOR 0.9% 1000 ML INJ 1,000 ML IV SCH (19:21)
[2017-01-31] MEDS ORDERED: SODIUM CHLORIDE 0.9% FLUSH 10 ML FLUSH IV FLUSH PRN (19:30)
[2017-01-31] MEDS ORDERED: FAMOTIDINE 20 MG/2 ML VIAL IV PUSH ONE (19:30)
[2017-01-31] MEDS ORDERED: ONDANSETRON HCL 4 MG/2 ML VIAL IVP ONE (19:30)
--- NOTE | 2017-01-31 19:32 | PD ---
HPI Chief Complaint: n/v/d Time Seen by Provider: 19:20 Travel History International Travel<30 days: No Contact w/Intl Traveler<30days: No Traveled to known affect area: No History of Present Illness HPI Patient is a 26-year-old female with history of migraine headache, presents to emergency room with multiple complaints. Patient reports that since this morning, she woke up not feeling well. Patient reports that she has had nausea with multiple episodes of vomiting as well as one episode of diarrhea today. Patient reports that she has been unable to keep down any fluids or any foods. Patient reports that she was lying down all day, reports that 2 hours prior to presentation to the emergency room, she began to have chest pain. Patient reports that pain is in her epigastrium, reports no radiation of her pain. Patient denies any diaphoresis, any shortness of breath or chest pain. Patient reports no history of chest pain in the past. Chest pain feels like a burning sensation to her epigastrium. Patient denies history of hypertension, hyperlipidemia, coronary artery disease. She is a nonsmoker, denies history of drug abuse. Denies any recent travels. Patient reports that her father has history of early [place] in his 40s. Patient also complains of a migraine headache at this time, reports that she has history of migraines, reports that her migraine started yesterday and is typical of her normal migraine headache. Patient denies any fevers or chills, denies any sick contacts. 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) Psychiatric: Yes Reproductive: Yes (HPV-) Respiratory: No Immunizations Current: Yes Migraines: Yes Pneumonia: Yes Radiation Therapy: No Sleep Apnea: No Thyroid Disease: No PNEUMOCCOCAL Vaccine (Year): 1 : 2 Miscarriage: 2 Ectopic : Yes (IN MAY 2011) Past Surgical History Abdominal Surgery: Yes (APPENDECTOMY 11-25) Appendectomy: Yes (NOV 2013) Gynecologic Surgery: Yes (LEFT SALPINGOOPHORECTOMY) Pacemaker: No Other Surgery: No Social History Alcohol Use: No Tobacco Use: Yes (1 cigarette per day) Substance Use: No (history of opiate abuse) Allergies-Medications (Allergen,Severity, Reaction): Coded Allergies: No Known Allergies (Verified Adverse Reaction, Unknown, 01/31/17) Reported Meds & Prescriptions Reported Meds & Active Scripts Active Zofran (Ondansetron HCl) 4 Mg Tab 4 Mg PO Q6HR PRN 5 Days Pepcid (Famotidine) 20 Mg Tab 20 Mg PO BID Reported Buprenorphine (Buprenorphine HCl) 8 Mg Subl 4 Mg SL BID Review of Systems General / Constitutional: No: Fever, Chills Eyes: No: Visual changes HENT: No: Headaches Cardiovascular: Positive: Chest Pain or Discomfort, No: Palpitations, Irregular Rhythm, Tachycardia Respiratory: No: Cough, Shortness of Breath Gastrointestinal: Positive: Nausea, Vomiting, Diarrhea, No: Abdominal Pain, Hematemesis, Constipation Genitourinary: No: Urgency, Dysuria Musculoskeletal: No: Pain Skin: No Rash Neurologic: No: Weakness Psychiatric: No: Depression Endocrine: No: Polydipsia Hematologic/Lymphatic: No: Easy Bruising Physical Exam Narrative GENERAL: mild distress SKIN: Focused skin assessment warm/dry. HEAD: Atraumatic. Normocephalic. EYES: Pupils equal and round. No scleral icterus. No injection or drainage. ENT: No nasal bleeding or discharge. Mucous membranes pink and moist. NECK: Trachea midline. No JVD. CARDIOVASCULAR: Regular rate and rhythm. No murmur appreciated. RESPIRATORY: No accessory muscle use. Clear to auscultation. Breath sounds equal bilaterally. GASTROINTESTINAL: Abdomen soft, non-tender, nondistended. Hepatic and splenic margins not palpable. MUSCULOSKELETAL: No obvious deformities. No clubbing. No cyanosis. No edema. NEUROLOGICAL: Awake and alert. No obvious cranial nerve deficits. Motor grossly within normal limits. Normal speech. PSYCHIATRIC: Appropriate mood and affect; insight and judgment normal. Data Data Last Documented VS Vital Signs Date Time Temp Pulse Resp B/P (MAP) Pulse Ox O2 Delivery O2 Flow Rate FiO2 01/31/17 22:28 103/63 (76) 01/31/17 22:05 72 14 99 Room Air 01/31/17 19:15 98.2 Orders Orders Beta Hcg (Quant/Titer) (01/31/17 19:21) Complete Blood Count With Diff (01/31/17 19:) Comprehensive Metabolic Panel (01/31/17:) Lipase (01/31/17:) Prothrombin Time / Inr (Pt) (01/31/17:) Act Partial Throm Time (Ptt) (01/31/17:21) Urinalysis - C+S If Indicated (01/31/17:) Iv Access Insert/Monitor (01/31/17:) Ecg Monitoring (01/31/17:) Oximetry (01/31/17:) NPO (01/31/17:) Ondansetron Inj (Zofran Inj) (01/31/17 19:30) Sodium Chlor 0.9% 1000 Ml Inj (Ns 1000 M (01/31/17 19:21) Sodium Chloride 0.9% Flush (Ns Flush) (01/31/17 19:30) Electrocardiogram (01/31/17:) Chest, Single Ap (01/31/17:21) Famotidine Inj (Pepcid Inj) (01/31/17 19:30) Ed Urine Pregnancytest Poc (01/31/17:21) Ckmb (Isoenzyme) Profile (01/31/17:21) Magnesium (Mg) (01/31/17 19:21) Troponin I (01/31/17 19:21) Drug Screen, Random Urine (01/31/17:21) CKMB (01/31/17:30) CKMB% (01/31/17 19:30) Ketorolac Inj (Toradol Inj) (01/31/17 20:45) Sodium Chlor 0.9% 1000 Ml Inj (Ns 1000 M (01/31/17 20:45) Sodium Chlor 0.9% 1000 Ml Inj (Ns 1000 M (01/31/17 22:00) Labs Laboratory Tests Test 01/31/17 19:30 White Blood Count 12.4 TH/MM3 Red Blood Count 4.68 MIL/MM3 Hemoglobin 14.1 GM/DL Hematocrit 43.8 % Mean Corpuscular Volume 93.6 FL Mean Corpuscular Hemoglobin 30.1 PG Mean Corpuscular Hemoglobin Concent 32.2 % Red Cell Distribution Width 13.0 % Platelet Count 208 TH/MM3 Mean Platelet Volume 8.0 FL Neutrophils (%) (Auto) 91.2 % Lymphocytes (%) (Auto) 5.8 % Monocytes (%) (Auto) 1.6 % Eosinophils (%) (Auto) 0.7 % Basophils (%) (Auto) 0.7 % Neutrophils # (Auto) 11.3 TH/MM3 Lymphocytes # (Auto) 0.7 TH/MM3 Monocytes # (Auto) 0.2 TH/MM3 Eosinophils # (Auto) 0.1 TH/MM3 Basophils # (Auto) 0.1 TH/MM3 CBC Comment DIFF FINAL Differential Comment Prothrombin Time 13.6 SEC Prothromb Time International Ratio 1.2 RATIO Activated Partial Thromboplast Time 22.6 SEC Blood Urea Nitrogen 20 MG/DL Creatinine 0.71 MG/DL Random Glucose 100 MG/DL Total Protein 7.1 GM/DL Albumin 4.1 GM/DL Calcium Level 8.8 MG/DL Magnesium Level 1.6 MG/DL Alkaline Phosphatase 83 U/L Aspartate Amino Transf (AST/SGOT) 22 U/L Alanine Aminotransferase (ALT/SGPT) 28 U/L Total Bilirubin 0.6 MG/DL Sodium Level 139 MEQ/L Potassium Level 4.0 MEQ/L Chloride Level 105 MEQ/L Carbon Dioxide Level 23.2 MEQ/L Anion Gap 11 MEQ/L Estimat Glomerular Filtration Rate 98 ML/MIN Total Creatine Kinase 104 U/L Creatine Kinase MB 2.9 NG/ML Troponin I LESS THAN 0.02 NG/ML Lipase 94 U/L Human Chorionic Gonadotropin, Quant LESS THAN 1 MIU/ML MDM Medical Decision Making Medical Screen Exam Complete: Yes Emergency Medical Condition: Yes Medical Record Reviewed: Yes Interpretation(s) EKG at 1923: Normal sinus rhythm at 60 bpm, QT/QTc 421/438, no acute ST-T wave changes Differential Diagnosis Gastroenteritis, gastritis, GERD, ACS, arrhythmia, pericarditis versus endocarditis though unlikely, dehydration, electrolyte abnormality Narrative Course Patient is a 26-year-old female with multiple complaints. Patient reports she has had multiple losses nausea, vomiting and diarrhea all day, 2 hours prior to coming to the emergency room, she began to have chest pain. Chest pain is epigastric in nature and feels a burning sensation to her chest. During the course of the patients emergency department visit, the patients history, examination, and differential diagnosis were reviewed with the patient. The patient was placed on a cardiac surgeon with oximetry and frequent blood pressure monitoring. The patient had a 20-gauge IV access obtained and blood work sent for analysis. The patient was initially provided IV fluids, IV Zofran as well as Pepcid. The patients laboratory studies were reviewed and remarkable for: Laboratory Tests Test 01/31/17 19:30 White Blood Count 12.4 TH/MM3 (4.0-11.0) Red Blood Count 4.68 MIL/MM3 (4.00-5.30) Hemoglobin 14.1 GM/DL (11.6-15.3) Hematocrit 43.8 % (35.0-46.0) Mean Corpuscular Volume 93.6 FL (80.0-100.0) Mean Corpuscular Hemoglobin 30.1 PG (27.0-34.0) Mean Corpuscular Hemoglobin Concent 32.2 % (32.0-36.0) Red Cell Distribution Width 13.0 % (11.6-17.2) Platelet Count 208 TH/MM3 (150-450) Mean Platelet Volume 8.0 FL (7.0-11.0) Neutrophils (%) (Auto) 91.2 % (16.0-70.0) Lymphocytes (%) (Auto) 5.8 % (9.0-44.0) Monocytes (%) (Auto) 1.6 % (0.0-8.0) Eosinophils (%) (Auto) 0.7 % (0.0-4.0) Basophils (%) (Auto) 0.7 % (0.0-2.0) Neutrophils # (Auto) 11.3 TH/MM3 (1.8-7.7) Lymphocytes # (Auto) 0.7 TH/MM3 (1.0-4.8) Monocytes # (Auto) 0.2 TH/MM3 (0-0.9) Eosinophils # (Auto) 0.1 TH/MM3 (0-0.4) Basophils # (Auto) 0.1 TH/MM3 (0-0.2) CBC Comment DIFF FINAL Differential Comment Prothrombin Time 13.6 SEC (9.8-11.6) Prothromb Time International Ratio 1.2 RATIO Activated Partial Thromboplast Time 22.6 SEC (24.3-30.1) Blood Urea Nitrogen 20 MG/DL (7-18) Creatinine 0.71 MG/DL (0.50-1.00) Random Glucose 100 MG/DL (74-106) Total Protein 7.1 GM/DL (6.4-8.2) Albumin 4.1 GM/DL (3.4-5.0) Calcium Level 8.8 MG/DL (8.5-10.1) Magnesium Level 1.6 MG/DL (1.5-2.5) Alkaline Phosphatase 83 U/L (45-117) Aspartate Amino Transf (AST/SGOT) 22 U/L (15-37) Alanine Aminotransferase (ALT/SGPT) 28 U/L (10-53) Total Bilirubin 0.6 MG/DL (0.2-1.0) Sodium Level 139 MEQ/L (136-145) Potassium Level 4.0 MEQ/L (3.5-5.1) Chloride Level 105 MEQ/L (98-107) Carbon Dioxide Level 23.2 MEQ/L (21.0-32.0) Anion Gap 11 MEQ/L (5-15) Estimat Glomerular Filtration Rate 98 ML/MIN (>89) Total Creatine Kinase 104 U/L (26-192) Creatine Kinase MB 2.9 NG/ML (0.5-3.6) Troponin I LESS THAN 0.02 NG/ML Lipase 94 U/L (73-393) Human Chorionic Gonadotropin, Quant LESS THAN 1 MIU/ML (0-5) Radiology studies were reviewed and remarkable for: Last Impressions Chest X-Ray 01/31/171920 Signed Impressions: Service Date/Time: Tuesday, January 31, 2017 19:29 - CONCLUSION: The lungs are clear. Johnnie Coffman MD Patient's chest pain is atypical in nature, most likely related to gerd from multiple episodes of nausea and vomiting today. EKG shows no acute ST or T- wave changes, laboratory work is benign. First troponin is negative, it was ordered initially to rule out infectious etiologies of chest pain including but not limited to an endocarditis or pericarditis. Patient with most likely acute gastroenteritis, as her symptoms initially began with nausea, vomiting and diarrhea leading to her epigastric "chest pain." She'll follow-up with her primary care doctor and will return to emergency room as needed. Patient feeling much better after IVF, toradol and zofran. I reviewed all labs and studies with patient in detail. Patient reevaluated, patient feeling much better at this time. Reviewed all labs and all studies with patient as well as her mother who is at bedside. Patient with most likely gastroenteritis. Signs and symptoms of when to return to the emergency room was reviewed with patient in detail. Patient with follow- up with her primary care doctor and will return to emergency room as needed. Patient reevaluated, patient feeling much better at this time. Patient was able to tolerate a healthy choice meal. VSS. Abdomen is soft, nontender, nondistended, no peritoneal signs. Patient follow up with her primary care doctor and will return to emergency room as needed. Patient thankful for care Diagnosis Primary Impression: Nausea vomiting and diarrhea Additional Impression: Chest pain Patient Instructions: General Instructions Additional Instructions: Please provide patient with a copy of their lab work and studies at discharge* * Please follow up with your primary care doctor in 2-3 days Return to the ER if symptoms worsen or progress Return to the ER as needed Please drink plenty of fluids and eat a bland diet Med/Other Pt SpecificInfo: Prescription(s) given Scripts Ondansetron (Zofran) 4 Mg Tab 4 MG PO Q6HR Y for NAUSEA OR VOMITING for 5 Days, TAB 0 Refills Prov: Fannie Hare DO 01/31/17 Famotidine (Pepcid) 20 Mg Tab 20 MG PO BID, #60 TAB 0 Refills Prov: Fannie Hare DO 01/31/17 Disposition: 01 DISCHARGE HOME Condition: Stable Fannie Hare DO Jan 31, 2017 19:32
[2017-01-31] MEDS ORDERED: BUPR8SUB SL (19:35)
[2017-01-31 19:41] LABS: AUTOMATED NEUTROPHIL # 11.3 TH/MM3 (1.8-7.7); BASOPHIL # 0.1 TH/MM3 (0-0.2); BASOPHIL % 0.7 % (0.0-2.0); EOSINOPHIL # 0.1 TH/MM3 (0-0.4); EOSINOPHIL % 0.7 % (0.0-4.0); HEMATOCRIT 43.8 % (35.0-46.0); HEMO FLAGS DIFF FINAL; LYMPH % 5.8 % (9.0-44.0); LYMPHOCYTE # 0.7 TH/MM3 (1.0-4.8); MEAN CELL VOLUME 93.6 FL (80.0-100.0); MEAN CORPUSCULAR HEMOGLOBIN 30.1 PG (27.0-34.0); MEAN CORPUSCULAR HGB CONC 32.2 % (32.0-36.0); MONO % 1.6 % (0.0-8.0); NEUT % 91.2 % (16.0-70.0); PLATELET COUNT 208 TH/MM3 (150-450); RED BLOOD COUNT 4.68 MIL/MM3 (4.00-5.30); WHITE BLOOD COUNT 12.4 TH/MM3 (4.0-11.0)
[2017-01-31 19:47] LABS: CHLORIDE 105 MEQ/L (98-107); SODIUM (NA) 139 MEQ/L (136-145)
[2017-01-31 19:51] VITALS: RESP 14; O2SAT 95
[2017-01-31 19:51] LABS: ANION GAP 11 MEQ/L (5-15); APTT (PATIENT) 22.6 SEC (24.3-30.1); BICARBONATE 23.2 MEQ/L (21.0-32.0); BLOOD UREA NITROGEN 20 MG/DL (7-18); INTERNATIONAL NORMALIZED RATIO 1.2 RATIO; MAGNESIUM 1.6 MG/DL (1.5-2.5); PROTHROMBIN TIME - PATIENT 13.6 SEC (9.8-11.6)
[2017-01-31 19:53] LABS: ALT (GPT) 28 U/L (10-53); AST (GOT) 22 U/L (15-37)
[2017-01-31 19:54] LABS: GLOMERULAR FILTRATION RATE 98 ML/MIN (>89)
[2017-01-31 19:55] LABS: TOTAL BILIRUBIN ADULT 0.6 MG/DL (0.2-1.0)
[2017-01-31 19:56] LABS: ALKALINE PHOSPHATASE 83 U/L (45-117); CREATINE KINASE 104 U/L (26-192)
[2017-01-31 19:59] LABS: BETA HCG QUANT LESS THAN 1 MIU/ML (0-5)
[2017-01-31 20:08] LABS: CKMB 2.9 NG/ML (0.5-3.6)
--- NOTE | 2017-01-31 20:25 | RADRPT ---
EXAM DATE/TIME: 01/31/2017 19:29 [facility] COMPARISON: No previous studies available for comparison. INDICATIONS : Chest pain. MEDICAL HISTORY : None. SURGICAL HISTORY : None. ENCOUNTER: Initial ACUITY: 1 day PAIN SCORE: 4/10 LOCATION: Bilateral chest FINDINGS: A single view of the chest demonstrates the lungs to be symmetrically aerated without evidence of mas s, infiltrate or effusion. The cardiomediastinal contours are unremarkable. Osseous structures are intact. CONCLUSION: The lungs are clear. Johnnie Coffman MD on January 31, 2017 at 20:24 Board Certified Radiologist. This report was verified electronically.
[2017-01-31] MEDS ORDERED: KETOROLAC TROMETHAMINE 30 MG/ML (IVP) VIAL IV PUSH ONE (20:45)
[2017-01-31] MEDS ORDERED: SODIUM CHLOR 0.9% 1000 ML INJ 1,000 ML IV ONE ×2 (20:45→22:00)
[2017-01-31] MEDS ORDERED: FAMO1TAB37 PO (20:45)
[2017-01-31 20:49] VITALS: BP 98/51; PULSE 72; RESP 14; O2SAT 100
[2017-01-31] MEDS ORDERED: ZOFR4TAB PO (21:31)
[2017-01-31 22:05] VITALS: BP 94/44; PULSE 72; RESP 14; O2SAT 99
[2017-01-31 22:28] VITALS: BP 103/63
[2017-01-31 23:24] VITALS: BP 101/53
--- NOTE | 2017-02-01 19:15 | EKG ---
Date Performed: 01/31/2017 Time Performed: 19:23:43 PTAGE: 26 years EKG: Sinus rhythm Since previous tracing, no significant change noted NORMAL ECG PREVIOUS TRACING : 10/19/2007 11.21.48 DOCTOR: Nasim High Interpretating Date/Time 02/01/2017 19:15:33
== END 2017-01-31 23:33 | disposition home or self-care (01) ==
LOC: PHED 19:14
DX: R11.2 Nausea with vomiting, unspecified (principal); R19.7 Diarrhea, unspecified; R07.9 Chest pain, unspecified; Z72.0 Tobacco use
CPT/HCPCS: 71010; 80053; 82550; 82552; 83690; 83735; 84484; 84702; 85025; 85610; 85730; 93005; 96361; 96374; 96375; 99285; J1885; J2405; J7030

== ENCOUNTER 2017-02-28 14:11 | Inpatient (IN) | payer SELFPAY ==
[~2017-02-28] VITALS: Ht 154.9 cm; Wt 45.5 kg
[~2017-02-28 14:11] MED LIST changes: +BUPR8SUB SL; -BUPRENORPHINE PO; +FAMO1TAB37 PO; -TRAM50 PO; +ZOFR4TAB PO
[2017-02-28] MEDS ORDERED: IOHEXOL 350 MG/ML 10 ML VIAL (for RAD DIAG) IVCONTRAST ONE (14:12)
[2017-02-28 14:15] VITALS: BP 99/56; PULSE 67; RESP 17; TEMP 94.8; O2SAT 100
[2017-02-28] MEDS ORDERED: SODIUM CHLOR 0.9% 1000 ML INJ 1,000 ML IV SCH (14:21)
[2017-02-28] MEDS ORDERED: PANTOPRAZOLE SODIUM 40 MG VIAL IVP ONE (14:30)
[2017-02-28] MEDS ORDERED: ONDANSETRON HCL 4 MG/2 ML VIAL IVP ONE (14:30)
[2017-02-28] MEDS ORDERED: SODIUM CHLORIDE 0.9% FLUSH 10 ML FLUSH IV FLUSH PRN ×2 (14:30→18:45)
--- NOTE | 2017-02-28 15:08 | PD ---
HPI Chief Complaint: Abdominal Pain Time Seen by Provider: 14:19 Travel History International Travel<30 days: No Contact w/Intl Traveler<30days: No Traveled to known affect area: No History of Present Illness HPI Patient is a 26-year-old female presenting to emergency for evaluation of abdominal pain. Patient states the pain radiates to her back and to the midsternal area. Pain started when she woke up this morning. Approximate 4 hours prior to arrival. On arrival patient was lethargic and appeared very drowsy. Family member is at bedside states that this is not normal for her and she woke up like this which is what prompted them to call 911. He family member states that she was fine yesterday. EMS gave 2 baby aspirin en route due to complaint of chest pain. Patient states that she feels nauseous and has been vomiting today. The pain is epigastric and cramping in nature, she rates it a 7 out of 10. She denies any dysuria, vaginal discharge, shortness of breath, fevers, chills. Patient has not had a menstrual cycle in 14 months, she denies being sexually active at this time. Her only medical history is an ectopic and an appendectomy. She is on Suboxone, she denies any illicit drug use or history of IV drug use. 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) Psychiatric: Yes Reproductive: Yes (HPV-) Respiratory: No Immunizations Current: Yes Migraines: Yes Pneumonia: Yes Radiation Therapy: No Sleep Apnea: No Thyroid Disease: No PNEUMOCCOCAL Vaccine (Year): 1 LMP: STATES "SINCE BEFORE THE BABY." 6MO OLD : 2 Miscarriage: 2 Ectopic : Yes (IN MAY 2011) Past Surgical History Abdominal Surgery: Yes (APPENDECTOMY -14) Appendectomy: Yes (NOV 2013) Gynecologic Surgery: Yes (LEFT SALPINGOOPHORECTOMY) Pacemaker: No Other Surgery: No Social History Alcohol Use: No Tobacco Use: Yes (1 cigarette per day) Substance Use: No (history of opiate abuse) Allergies-Medications (Allergen,Severity, Reaction): Coded Allergies: No Known Allergies (Verified Adverse Reaction, Unknown, 01/31/17) Reported Meds & Prescriptions Reported Meds & Active Scripts Active Zofran (Ondansetron HCl) 4 Mg Tab 4 Mg PO Q6HR PRN 5 Days Pepcid (Famotidine) 20 Mg Tab 20 Mg PO BID Reported Buprenorphine (Buprenorphine HCl) 8 Mg Subl 4 Mg SL BID Review of Systems Except as stated in HPI: all other systems reviewed are Neg General / Constitutional: Positive: Chills HENT: No: Headaches Cardiovascular: Positive: Chest Pain or Discomfort Respiratory: No: Cough, Shortness of Breath, Wheezing Gastrointestinal: Positive: Nausea, Vomiting, Abdominal Pain Genitourinary: No: Dysuria Musculoskeletal: No: Myalgias Neurologic: Positive: Weakness, No: Dizziness Physical Exam Narrative GENERAL: Thin, well-developed female. Resting in no acute distress. SKIN: Warm and dry. HEAD: Atraumatic. Normocephalic. EYES: Pupils equal and round. No scleral icterus. No injection or drainage. ENT: No nasal bleeding or discharge. Mucous membranes pink and moist. NECK: Trachea midline. No JVD. CARDIOVASCULAR: Bradycardic RESPIRATORY: No accessory muscle use. Clear to auscultation. Breath sounds equal bilaterally. GASTROINTESTINAL: Abdomen soft, tender to palpation diffusely, nondistended. Hepatic and splenic margins not palpable. Positive bowel sounds, positive guarding, no rebound. MUSCULOSKELETAL: Extremities without clubbing, cyanosis, or edema. No obvious deformities. NEUROLOGICAL: Awake and alert. No obvious cranial nerve deficits. Motor grossly within normal limits. Five out of 5 muscle strength in the arms and legs. Normal speech. PSYCHIATRIC: Appropriate mood and affect; insight and judgment normal. Data Data Last Documented VS Vital Signs Date Time Temp Pulse Resp B/P (MAP) Pulse Ox O2 Delivery O2 Flow Rate FiO2 02/28/17 14:15 94.8 67 17 99/56 (70) 100 Orders Orders Complete Blood Count With Diff (02/28/17 14:21) Comprehensive Metabolic Panel (02/28/17 14:21) Lipase (02/28/17 14:21) Urinalysis - C+S If Indicated (02/28/17 14:21) Ct Abd/Pel W Iv Contrast(Rout) (02/28/17 14:21) Iv Access Insert/Monitor (02/28/17 14:21) Ecg Monitoring (02/28/17 14:21) Oximetry (02/28/17 14:21) Ondansetron Inj (Zofran Inj) (02/28/17 14:30) Pantoprazole Inj (Protonix Inj) (02/28/17 14:30) Sodium Chlor 0.9% 1000 Ml Inj (Ns 1000 M (02/28/17 14:21) Sodium Chloride 0.9% Flush (Ns Flush) (02/28/17 14:30) Electrocardiogram (02/28/17 14:21) Ed Urine Pregnancytest Poc (02/28/17 14:21) Troponin I (02/28/17 14:21) Ckmb (Isoenzyme) Profile (02/28/17 14:21) Blood Culture (02/28/17 14:55) Lactic Acid (02/28/17 14:55) Vancomycin Inj (Vancomycin Inj) (02/28/17 16:05) Piperacil-Tazo 4.5 Gm Premix (Zosyn 4.5 (02/28/17 16:05) Chest, Single Ap (02/28/17 ) CKMB (02/28/17 15:20) CKMB% (02/28/17 15:20) Sodium Chlor 0.9% 1000 Ml Inj (Ns 1000 M (02/28/17 16:30) Iohexol 350 Inj (Omnipaque 350 Inj) (02/28/17 14:12) Lactic Acid (02/28/17 17:04) Admit Order (Ed Use Only) (02/28/17 18:06) Labs Laboratory Tests Test 02/28/17 15:00 02/28/17 15:20 Urine Color YELLOW Urine Turbidity CLEAR Urine pH 5.5 Urine Specific Mark 1.023 Urine Protein TRACE mg/dL Urine Glucose (UA) NEG mg/dL Urine Ketones 40 mg/dL Urine Occult Blood NEG Urine Nitrite NEG Urine Bilirubin NEG Urine Urobilinogen LESS THAN 2.0 MG/DL Urine Leukocyte Esterase NEG Urine RBC 1 /hpf Urine WBC LESS THAN 1 /hpf Urine Squamous Epithelial Cells <1 /hpf Urine Mucus FEW /lpf Microscopic Urinalysis Comment CULT NOT INDICATED White Blood Count 17.4 TH/MM3 Red Blood Count 4.50 MIL/MM3 Hemoglobin 13.9 GM/DL Hematocrit 42.2 % Mean Corpuscular Volume 93.8 FL Mean Corpuscular Hemoglobin 30.8 PG Mean Corpuscular Hemoglobin Concent 32.8 % Red Cell Distribution Width 12.9 % Platelet Count 255 TH/MM3 Mean Platelet Volume 8.2 FL Neutrophils (%) (Auto) 81.5 % Lymphocytes (%) (Auto) 11.6 % Monocytes (%) (Auto) 4.0 % Eosinophils (%) (Auto) 2.6 % Basophils (%) (Auto) 0.3 % Neutrophils # (Auto) 14.2 TH/MM3 Lymphocytes # (Auto) 2.0 TH/MM3 Monocytes # (Auto) 0.7 TH/MM3 Eosinophils # (Auto) 0.4 TH/MM3 Basophils # (Auto) 0.1 TH/MM3 CBC Comment DIFF FINAL Differential Comment Blood Urea Nitrogen 23 MG/DL Creatinine 0.76 MG/DL Random Glucose 86 MG/DL Total Protein 6.4 GM/DL Albumin 3.8 GM/DL Calcium Level 8.3 MG/DL Alkaline Phosphatase 85 U/L Aspartate Amino Transf (AST/SGOT) 37 U/L Alanine Aminotransferase (ALT/SGPT) 27 U/L Total Bilirubin 0.6 MG/DL Sodium Level 141 MEQ/L Potassium Level 4.1 MEQ/L Chloride Level 109 MEQ/L Carbon Dioxide Level 20.6 MEQ/L Anion Gap 11 MEQ/L Estimat Glomerular Filtration Rate 91 ML/MIN Lactic Acid Level 3.6 mmol/L Total Creatine Kinase 136 U/L Creatine Kinase MB 2.5 NG/ML Troponin I LESS THAN 0.02 NG/ML Lipase 81 U/L [facility] Medical Decision Making Medical Screen Exam Complete: Yes Emergency Medical Condition: Yes Medical Record Reviewed: Yes Interpretation(s) Vital Signs Date Time Temp Pulse Resp B/P (MAP) Pulse Ox O2 Delivery O2 Flow Rate FiO2 02/28/17 14:15 94.8 67 17 99/56 (70) 100 Differential Diagnosis UTI versus sepsis versus gastritis versus obstruction versus pancreatitis versus cholecystitis versus ACS versus other Narrative Course Patient is a 26-year-old female presented to emergency department for evaluation of abdominal pain radiated to her back and mid sternal chest. On arrival patient's temp was 94.8, she was hypotensive and lethargic. Sepsis protocol initiated and labs and imaging ordered and pending. CBC with a white count of 17.4 with left shift Lactic acid 3.6, chemistry resulted with a carbon dioxide of 20.6 otherwise no acute abnormalities, urinalysis is unremarkable. Chest x-ray which was read by the radiologist shows no acute disease CT scan abdomen and pelvis also read by the radiologist shows moderate prominent spleen otherwise negative exam. Empiric antibiotics ordered. Patient was given a total of 2 L of IV fluids not including the 250 mL vancomycin infusion. Discussed findings with patient and family members, at this time patient will be admitted for sepsis of unknown origin, splenomegaly. Discussed findings with Dr. Wolff who accepted admission. Admit orders placed. Patient is agreeable to stay. Sepsis Criteria SIRS Criteria (2 or more): Temp > 100.9 or < 96.8, WBC > 91527, < 4000 or > 10 % bands Severe Sepsis (+one): Hypotension, Lactate >2 Diagnosis Primary Impression: Sepsis Qualified Codes: A41.9 - Sepsis, unspecified organism Additional Impression: Splenomegaly Admitting Information Admitting Physician Requests: Admit Condition: Stable Aimee Velasco Feb 28, 2017 15:08
--- NOTE | 2017-02-28 15:16 | PD ---
Physical Exam Date Seen by Provider: Feb 28, 2017 Narrative This patient presents with abdominal pain. Onset was today. Actually, her chief complaint to me was "I need a blanket." Data Data Last Documented VS Vital Signs Date Time Temp Pulse Resp B/P (MAP) Pulse Ox O2 Delivery O2 Flow Rate FiO2 02/28/17 14:15 94.8 67 17 99/56 (70) 100 Orders Orders Complete Blood Count With Diff (02/28/17 14:21) Comprehensive Metabolic Panel (02/28/17 14:21) Lipase (02/28/17 14:21) Urinalysis - C+S If Indicated (02/28/17 14:21) Ct Abd/Pel W Iv Contrast(Rout) (02/28/17 14:21) Iv Access Insert/Monitor (02/28/17 14:21) Ecg Monitoring (02/28/17 14:21) Oximetry (02/28/17 14:21) Ondansetron Inj (Zofran Inj) (02/28/17 14:30) Pantoprazole Inj (Protonix Inj) (02/28/17 14:30) Sodium Chlor 0.9% 1000 Ml Inj (Ns 1000 M (02/28/17 14:21) Sodium Chloride 0.9% Flush (Ns Flush) (02/28/17 14:30) Electrocardiogram (02/28/17 14:21) Ed Urine Pregnancytest Poc (02/28/17 14:21) Troponin I (02/28/17 14:21) Ckmb (Isoenzyme) Profile (02/28/17 14:21) Blood Culture (02/28/17 14:55) Lactic Acid (02/28/17 14:55) MDM Supervised Visit with VINICIO: Yes Narrative Course I, Dr. Laguerre, have reviewed the advance practice practitioner's documentation and am in agreement, met with the patient face to face, made the diagnosis, and the medical decision making was done by me. *My assessment and Findings: Patient is lying on the stretcher with her eyes closed. She does not turn to acknowledge my presence. Her abdomen is soft. Please see Aimee Ordonez NP's note for results of laboratory and radiographic evaluation, ED course, final diagnosis and disposition Lydia Laguerre MD Feb 28, 2017 15:15
[2017-02-28 16:01] LABS: AUTOMATED NEUTROPHIL # 14.2 TH/MM3 (1.8-7.7); BASOPHIL # 0.1 TH/MM3 (0-0.2); BASOPHIL % 0.3 % (0.0-2.0); EOSINOPHIL # 0.4 TH/MM3 (0-0.4); EOSINOPHIL % 2.6 % (0.0-4.0); HEMATOCRIT 42.2 % (35.0-46.0); HEMO FLAGS DIFF FINAL; LYMPH % 11.6 % (9.0-44.0); MEAN CELL VOLUME 93.8 FL (80.0-100.0); MEAN CORPUSCULAR HEMOGLOBIN 30.8 PG (27.0-34.0); MEAN CORPUSCULAR HGB CONC 32.8 % (32.0-36.0); NEUT % 81.5 % (16.0-70.0); PLATELET COUNT 255 TH/MM3 (150-450); RED CELL DISTRIBUTION WIDTH 12.9 % (11.6-17.2); WHITE BLOOD COUNT 17.4 TH/MM3 (4.0-11.0)
[2017-02-28 16:05] LABS: BLOOD, URINE NEG (NEG); COMMENT (UR) CULT NOT INDICATED; CULTURE IF INDICATED CULT NOT INDICATED; GLUCOSE,URINE NEG (NEG); KETONE, URINE 40 mg/dL (NEG); MUCUS URINE FEW /lpf (OCC); NITRITE,URINE NEG (NEG); PH, URINE 5.5 (5.0-8.5); SQUAMOUS EPITHELIAL CELL URINE <1 /hpf (0-5); URINE COLOR YELLOW (YELLW/STRAW)
[2017-02-28] MEDS ORDERED: PIPERACIL-TAZO 4.5 GM PREMIX 100 ML IV STA (16:05)
[2017-02-28] MEDS ORDERED: VANCOMYCIN INJ 1,000 MG in SODIUM CHLOR 0.9% 250 ML INJ 250 ML IV STA (16:05)
[2017-02-28 16:21] LABS: ALKALINE PHOSPHATASE 85 U/L (45-117); ALT (GPT) 27 U/L (10-53); ANION GAP 11 MEQ/L (5-15); AST (GOT) 37 U/L (15-37); BICARBONATE 20.6 MEQ/L (21.0-32.0); BLOOD UREA NITROGEN 23 MG/DL (7-18); CHLORIDE 109 MEQ/L (98-107); CREATINE KINASE 136 U/L (26-192); GLOMERULAR FILTRATION RATE 91 ML/MIN (>89); POTASSIUM 4.1 MEQ/L (3.5-5.1); SODIUM (NA) 141 MEQ/L (136-145); TOTAL BILIRUBIN ADULT 0.6 MG/DL (0.2-1.0)
--- NOTE | 2017-02-28 16:27 | RADRPT ---
EXAM DATE/TIME: 02/28/2017 16:15 [facility] COMPARISON: CHEST SINGLE AP, January 31, 2017, 19:29. INDICATIONS : Fever, chest pain MEDICAL HISTORY : None. SURGICAL HISTORY : None. ENCOUNTER: Initial ACUITY: 1 day PAIN SCORE: 1/10 LOCATION: chest FINDINGS: 2 portable frontal views of the chest demonstrate the lungs to be symmetrically aerated without evide nce of mass, infiltrate or effusion. The cardiomediastinal contours are unremarkable. Osseous struc tures are intact. CONCLUSION: No acute disease. Johnnie Mishra Jr., MD on February 28, 2017 at 16:23 Board Certified Radiologist. This report was verified electronically.
[2017-02-28] MEDS ORDERED: SODIUM CHLOR 0.9% 1000 ML INJ 1,000 ML IV ONE (16:30)
[2017-02-28 16:33] LABS: CKMB 2.5 NG/ML (0.5-3.6)
--- NOTE | 2017-02-28 17:15 | RADRPT ---
EXAM DATE/TIME: 02/28/2017 16:50 [facility] COMPARISON: CT ABDOMEN & PELVIS W CONTRAST, December 13, 2013, 0:20. INDICATIONS : Upper abdomen pain. IV CONTRAST: 70 cc Omnipaque 350 (iohexol) IV ORAL CONTRAST: No oral contrast ingested. RADIATION DOSE: 6.07 CTDIvol (mGy) MEDICAL HISTORY : None SURGICAL HISTORY : None. ENCOUNTER: Initial ACUITY: 1 day PAIN SCALE: 9/10 LOCATION: upper abdomen TECHNIQUE: Volumetric scanning of the abdomen and pelvis was performed. Using automated exposure control and ad justment of the mA and/or kV according to patient size, radiation dose was kept as low as reasonably achievable to obtain optimal diagnostic quality images. DICOM format image data is available electro nically for review and comparison. FINDINGS: LOWER LUNGS: The visualized lower lungs are clear. LIVER: Homogeneous density without lesion. There is no dilation of the biliary tree. No calcified gallston es. SPLEEN: Mildly prominent spleen PANCREAS: Within normal limits. KIDNEYS: Tiny 2 mm stone obstructing left kidney ADRENAL GLANDS: Within normal limits. VASCULAR: There is no aortic aneurysm. BOWEL/MESENTERY: Large amount stool is seen in the colon. ABDOMINAL WALL: Within normal limits. RETROPERITONEUM: There is no lymphadenopathy. BLADDER: No wall thickening or mass. REPRODUCTIVE: Within normal limits. INGUINAL: There is no lymphadenopathy or hernia. MUSCULOSKELETAL: Within normal limits for patient age. CONCLUSION: Moderate prominent spleen otherwise negative Khurram Lane MD FACR on February 28, 2017 at 17:00 Board Certified Radiologist. This report was verified electronically.
[2017-02-28] MEDS ORDERED: NALOXONE HCL 0.4 MG/ML AMP IV PUSH PRN (18:45)
[2017-02-28] MEDS ORDERED: ONDANSETRON HCL 4 MG/2 ML VIAL IVP PRN (18:45)
[2017-02-28] MEDS ORDERED: ACETAMINOPHEN 325 MG TAB PO PRN (18:45)
[2017-02-28 18:48] VITALS: BP 105/51; PULSE 91; RESP 17; TEMP 98.9; O2SAT 99
[2017-02-28 20:00] VITALS: BP 90/40; PULSE 94; RESP 16; TEMP 97.7; O2SAT 94
[2017-02-28] MEDS: SODIUM CHLORIDE 0.9% FLUSH 10 ML FLUSH IV FLUSH SCH (21:00)
[2017-02-28 21:36] VITALS: PULSE 69
[2017-02-28] MEDS ORDERED: Vancomycin Consult Pharmacy 1 EA OTHER SCH (22:45)
[2017-02-28] MEDS ORDERED: ZOLPIDEM TARTRATE 5 MG TAB PO PRN (22:45)
--- NOTE | 2017-02-28 23:03 | HHI.HP ---
[facility] Service [facility] Primary Care Physician No Primary Care Physician Admission Diagnosis sepsis, abdominal pain Diagnoses: Travel History International Travel<30 Days: No Contact w/Intl Traveler <30 Da: No Traveled to Known Affected Are: No History of Present Illness 26-year-old female presented to the emergency department for evaluation of chest pain that radiated to her back, and abdominal pain. The patient describes her chest pain is substernal and sharp. She states it feels as though a knife is going through her chest to her back. She endorses nausea/ vomiting 1. Has subjective fever/chills. The patient was brought to the emergency department via EMS for being lethargic and drowsy. The patient is on Suboxone but denies taking any illicit drugs. She was found to have a leukocytosis with a WBC count of 17.4. Lactic acid on arrival was 3.6. UA and chest x-ray within normal limits. CT of the abdomen/ pelvis shows a moderately prominent spleen but was negative for acute findings. Review of Systems Subjective fever/chills Denies blurry vision, otorrhea, rhinorrhea Denies sore throat and cough Positive chest pain, No palpitations, shortness of breath Positive abdominal pain Denies constipation/diarrhea. Positive nausea/vomiting Denies muscle pain/weakness No rashes Past Family Social History Past Medical History On Suboxone for chronic pain Past Surgical History Atopic Appendectomy Reported Medications Reported Meds & Active Scripts Active Reported Buprenorphine (Buprenorphine HCl) 8 Mg Subl 4 Mg SL BID Allergies: Coded Allergies: No Known Allergies (Verified Allergy, Unknown, 02/28/17) Family History Negative for CAD/DM Social History Smokes between 2-5 cigarettes per day. Denies alcohol or illicit drugs. Physical Exam Vital Signs Vital Signs Date Time Temp Pulse Resp B/P (MAP) Pulse Ox O2 Delivery O2 Flow Rate FiO2 02/28/17 20:00 97.7 94 16 90/40 (57) 94 02/28/17 19:52 02/28/17 18:48 98.9 91 17 105/51 (69) 99 2.00 02/28/17 14:15 94.8 67 17 99/56 (70) 100 Physical Exam GENERAL: female lying in bed SKIN: No rashes, ecchymoses or lesions. Cool and dry. HEAD: Atraumatic. Normocephalic. No temporal or scalp tenderness. EYES: Pupils equal round and reactive. Extraocular motions intact. No scleral icterus. No injection or drainage. ENT: Nose without bleeding, purulent drainage or septal hematoma. Throat without erythema, tonsillar hypertrophy or exudate. Uvula midline. Airway patent. NECK: Trachea midline. No JVD or lymphadenopathy. Supple, nontender, no meningeal signs. CARDIOVASCULAR: Regular rate and rhythm without murmurs, gallops, or rubs. RESPIRATORY: Clear to auscultation. Breath sounds equal bilaterally. No wheezes , rales, or rhonchi. GASTROINTESTINAL: Abdomen soft, non-tender, nondistended. No palpable masses. No guarding. MUSCULOSKELETAL: Extremities without clubbing, cyanosis, or edema. No joint tenderness, effusion, or edema noted. No calf tenderness. NEUROLOGICAL: Awake and alert. Cranial nerves II through XII intact. Motor and sensory grossly within normal limits. Normal speech. Laboratory Laboratory Tests Test 02/28/17 15:00 02/28/17 15:20 02/28/17 18:30 Urine Color YELLOW Urine Turbidity CLEAR Urine pH 5.5 Urine Specific [place] 1.023 Urine Protein TRACE Urine Glucose (UA) NEG Urine Ketones 40 Urine Occult Blood NEG Urine Nitrite NEG Urine Bilirubin NEG Urine Urobilinogen LESS THAN 2.0 Urine Leukocyte Esterase NEG Urine RBC 1 Urine WBC LESS THAN 1 Urine Squamous Epithelial Cells <1 Urine Mucus FEW Microscopic Urinalysis Comment CULT NOT INDICATED White Blood Count 17.4 Red Blood Count 4.50 Hemoglobin 13.9 Hematocrit 42.2 Mean Corpuscular Volume 93.8 Mean Corpuscular Hemoglobin 30.8 Mean Corpuscular Hemoglobin Concent 32.8 Red Cell Distribution Width 12.9 Platelet Count 255 Mean Platelet Volume 8.2 Neutrophils (%) (Auto) 81.5 Lymphocytes (%) (Auto) 11.6 Monocytes (%) (Auto) 4.0 Eosinophils (%) (Auto) 2.6 Basophils (%) (Auto) 0.3 Neutrophils # (Auto) 14.2 Lymphocytes # (Auto) 2.0 Monocytes # (Auto) 0.7 Eosinophils # (Auto) 0.4 Basophils # (Auto) 0.1 CBC Comment DIFF FINAL Differential Comment Blood Urea Nitrogen 23 Creatinine 0.76 Random Glucose 86 Total Protein 6.4 Albumin 3.8 Calcium Level 8.3 Alkaline Phosphatase 85 Aspartate Amino Transf (AST/SGOT) 37 Alanine Aminotransferase (ALT/SGPT) 27 Total Bilirubin 0.6 Sodium Level 141 Potassium Level 4.1 Chloride Level 109 Carbon Dioxide Level 20.6 Anion Gap 11 Estimat Glomerular Filtration Rate 91 Lactic Acid Level 3.6 0.8 Total Creatine Kinase 136 Creatine Kinase MB 2.5 Troponin I LESS THAN 0.02 Lipase 81 Date/Time Source Procedure Growth Status 02/28/17 15:20 Blood Peripheral Aerobic Blood Culture Pending Received 02/28/17 15:20 Blood Peripheral Anaerobic Blood Culture Pending Received Result Diagram: 02/28/17 1520 02/28/17 1520 Eddi VTE Risk Assessment Eddi VTE Risk Assessment: No/Low Risk (score <= 1) Caprini Risk Assessment Model Point Value = 1 Point Value = 2 Point Value = 3 Point Value = 5 Age 41-60 Minor surgery BMI > 25 kg/m2 Swollen legs Varicose veins or History of unexplained or recurrent spontaneous Oral contraceptives or hormone replacement Sepsis (< 1 month) Serious lung disease, including pneumonia (< 1 month) Abnormal pulmonary function Acute myocardial infarction Congestive heart failure (< 1 month) History of inflammatory bowel disease Medical patient at bed rest Age 61-74 Arthroscopic surgery Major open surgery (> 45 min) Laparoscopic surgery (> 45 min) Malignancy Confined to bed (> 72 hours) Immobilizing plaster cast Central venous access Age >= 75 History of VTE Family history of VTE Factor V Leiden Prothrombin [id number] Lupus anticoagulant Anticardiolipin antibodies Elevated serum homocysteine Heparin-induced thrombocytopenia Other congenital or acquired thrombophilia Stroke (< 1 month) Elective arthroplasty Hip, pelvis, or leg fracture Acute spinal cord injury (< 1 month) Prophylaxis Regimen Total Risk Factor Score Risk Level Prophylaxis Regimen 0-1 Low Early ambulation 2 Moderate Order ONE of the following: *Sequential Compression Device (SCD) *Heparin 5000 units SQ BID 3-4 Higher Order ONE of the following medications: *Heparin 5000 units SQ TID *Enoxaparin/Lovenox 40 mg SQ daily (WT < 150 kg, CrCl > 30 mL/min) *Enoxaparin/Lovenox 30 mg SQ daily (WT < 150 kg, CrCl > 10-29 mL/min) *Enoxaparin/Lovenox 30 mg SQ BID (WT < 150 kg, CrCl > 30 mL/min) AND/OR *Sequential Compression Device (SCD) 5 or more Highest Order ONE of the following medications: *Heparin 5000 units SQ TID (Preferred with Epidurals) *Enoxaparin/Lovenox 40 mg SQ daily (WT < 150 kg, CrCl > 30 mL/min) *Enoxaparin/Lovenox 30 mg SQ daily (WT < 150 kg, CrCl > 10-29 mL/min) *Enoxaparin/Lovenox 30 mg SQ BID (WT < 150 kg, CrCl > 30 mL/min) AND *Sequential Compression Device (SCD) Assessment and Plan Assessment and Plan Assessment/plan: 1. Sepsis Unidentified source Patient with leukocytosis and lactic acid of 3.6, repeat lactic acid wnl Urine, CXR, CT of the abdomen/pelvis all within normal limits Vancomycin/Zosyn Blood cultures pending Monitor for signs of shock IVFs 2. Chronic Suboxone use Patient will take her home Suboxone dosing Morphine for breakthrough pain FEN Regular diet Electrolytes: Monitor and replete when necessary NS at 75 cc/hr SCDs Physician Certification 2 Midnight Certification Type: Admission for Inpatient Services Order for Inpatient Services The services are ordered in accordance with Medicare regulations or non- Medicare payer requirements, as applicable. In the case of services not specified as inpatient-only, they are appropriately provided as inpatient services in accordance with the 2-midnight benchmark. Estimated LOS (days): 2 2 days is the estimated time the patient will need to remain in the hospital, assuming treatment plan goals are met and no additional complications. Post-Hospital Plan: Not yet determined Fannie Everett MD Feb 28, 2017 23:03
[2017-03-01] VITALS (7 sets, daily range): BP systolic 89–112; BP diastolic 52–64; PULSE 67–84; RESP 16–18; TEMP 96.1–98; O2SAT 92–98
[2017-03-01] MEDS: SODIUM CHLOR 0.9% 1000 ML INJ 1,000 ML IV SCH ×2 (00:26→12:20)
[2017-03-01] MEDS: PIPERACIL-TAZO 3.375 GM PREMIX 50 ML IV SCH ×4 (03:27→21:06)
[2017-03-01] MEDS ORDERED: VANCOMYCIN INJ 1,000 MG in SODIUM CHLOR 0.9% 250 ML INJ 250 ML IV SCH (04:00)
[2017-03-01] MEDS ORDERED: VANCOMYCIN INJ 700 MG in SODIUM CHLOR 0.9% 250 ML INJ 250 ML IV ONE (05:00)
[2017-03-01] MEDS: MORPHINE SULFATE 2 MG/ML INJ IV PUSH PRN ×5 (05:07→20:59)
[2017-03-01] MEDS: SODIUM CHLORIDE 0.9% FLUSH 10 ML FLUSH IV FLUSH SCH ×2 (09:16→21:08)
[2017-03-01 11:12] LABS: AUTOMATED NEUTROPHIL # 6.3 TH/MM3 (1.8-7.7); BASOPHIL % 0.2 % (0.0-2.0); EOSINOPHIL # 0.1 TH/MM3 (0-0.4); EOSINOPHIL % 1.5 % (0.0-4.0); HEMATOCRIT 36.5 % (35.0-46.0); HEMO FLAGS DIFF FINAL; MEAN CELL VOLUME 93.8 FL (80.0-100.0); MEAN CORPUSCULAR HGB CONC 34.1 % (32.0-36.0); MONO % 5.4 % (0.0-8.0); NEUT % 70.9 % (16.0-70.0); PLATELET COUNT 197 TH/MM3 (150-450); RED BLOOD COUNT 3.89 MIL/MM3 (4.00-5.30); RED CELL DISTRIBUTION WIDTH 12.5 % (11.6-17.2); WHITE BLOOD COUNT 8.9 TH/MM3 (4.0-11.0)
[2017-03-01 11:37] LABS: ALKALINE PHOSPHATASE 68 U/L (45-117); ALT (GPT) 34 U/L (10-53); ANION GAP 5 MEQ/L (5-15); AST (GOT) 27 U/L (15-37); BICARBONATE 26.1 MEQ/L (21.0-32.0); BLOOD UREA NITROGEN 14 MG/DL (7-18); CHLORIDE 113 MEQ/L (98-107); GLOMERULAR FILTRATION RATE 115 ML/MIN (>89); POTASSIUM 3.5 MEQ/L (3.5-5.1); SODIUM (NA) 144 MEQ/L (136-145); TOTAL BILIRUBIN ADULT 0.3 MG/DL (0.2-1.0)
--- NOTE | 2017-03-01 12:56 | EKG ---
Date Performed: 02/28/2017 Time Performed: 15:53:31 PTAGE: 26 years EKG: Sinus rhythm WITH SHORT TX INTERVAL WITH OCCASIONAL SUPRAVENTRICULAR PREMATURE COMPLEXES MODERATE INTRAVENTRICULA R CONDUCTION DELAY BORDERLINE ECG PREVIOUS TRACING : 01/31/2017 19.23 Compared to prior tracing no significant change DOCTOR: Luis Alberto Gonsalez Interpretating Date/Time 03/01/2017 12:55:54
--- NOTE | 2017-03-01 16:50 | HHI.PR ---
Subjective Remarks 26-year-old female presented to the emergency department for evaluation of chest pain that radiated to her back, and abdominal pain. The patient describes her chest pain is substernal and sharp. She states it feels as though a knife is going through her chest to her back. She endorses nausea/ vomiting 1. Has subjective fever/chills. The patient was brought to the emergency department via EMS for being lethargic and drowsy. The patient is on Suboxone but denies taking any illicit drugs. She was found to have a leukocytosis with a WBC count of 17.4. Lactic acid on arrival was 3.6. UA and chest x-ray within normal limits. CT of the abdomen/ pelvis shows a moderately prominent spleen but was negative for acute findings. 03-01 patient states she is chronically on Suboxone from Dr. Lam States that she does not do any IV drug use States she is on Suboxone due to chronic pain and has been on it for 3 years and no attempt has been made to wean her off Feels much better today White blood cell count is down to within normal limits Will monitor tomorrow and get a.m. labs If she is improved hopefully can be discharged home tomorrow No source so far Seen with female RN in attendance Objective Vitals Vital Signs Date Time Temp Pulse Resp B/P (MAP) Pulse Ox O2 Delivery O2 Flow Rate FiO2 03/01/17 12:00 96.1 67 16 89/57 (68) 96 03/01/17 09:16 75 03/01/17 08:00 96.1 78 16 90/52 (65) 95 03/01/17 04:00 97.8 82 17 100/60 (73) 94 03/01/17 00:00 97.4 80 17 100/58 (72) 92 02/28/17 21:36 69 02/28/17 20:00 97.7 94 16 90/40 (57) 94 02/28/17 19:52 02/28/17 18:48 98.9 91 17 105/51 (69) 99 2.00 I/O 02/28/17 02/28/17 02/28/17 03/01/17 03/01/17 03/01/17 07:00 15:00 23:00 07:00 15:00 23:00 Intake Total 2350 ml 240 ml 1000 ml Balance 2350 ml 240 ml 1000 ml Intake Oral 240 ml IV Total 2350 ml 1000 ml # Voids 3 Result Diagram: 03/01/17 1037 03/01/17 1037 Other Results Laboratory Tests Test 02/28/17 15:00 02/28/17 15:20 02/28/17 18:30 03/01/17 10:37 Urine Color YELLOW Urine Turbidity CLEAR Urine pH 5.5 Urine Specific [place] 1.023 Urine Protein TRACE mg/dL Urine Glucose (UA) NEG mg/dL Urine Ketones 40 mg/dL Urine Occult Blood NEG Urine Nitrite NEG Urine Bilirubin NEG Urine Urobilinogen LESS THAN 2.0 MG/DL Urine Leukocyte Esterase NEG Urine RBC 1 /hpf Urine WBC LESS THAN 1 /hpf Urine Squamous Epithelial Cells <1 /hpf Urine Mucus FEW /lpf Microscopic Urinalysis Comment CULT NOT INDICATED White Blood Count 17.4 TH/MM3 8.9 TH/MM3 Red Blood Count 4.50 MIL/MM3 3.89 MIL/MM3 Hemoglobin 13.9 GM/DL 12.4 GM/DL Hematocrit 42.2 % 36.5 % Mean Corpuscular Volume 93.8 FL 93.8 FL Mean Corpuscular Hemoglobin 30.8 PG 32.0 PG Mean Corpuscular Hemoglobin Concent 32.8 % 34.1 % Red Cell Distribution Width 12.9 % 12.5 % Platelet Count 255 TH/MM3 197 TH/MM3 Mean Platelet Volume 8.2 FL 8.0 FL Neutrophils (%) (Auto) 81.5 % 70.9 % Lymphocytes (%) (Auto) 11.6 % 22.0 % Monocytes (%) (Auto) 4.0 % 5.4 % Eosinophils (%) (Auto) 2.6 % 1.5 % Basophils (%) (Auto) 0.3 % 0.2 % Neutrophils # (Auto) 14.2 TH/MM3 6.3 TH/MM3 Lymphocytes # (Auto) 2.0 TH/MM3 2.0 TH/MM3 Monocytes # (Auto) 0.7 TH/MM3 0.5 TH/MM3 Eosinophils # (Auto) 0.4 TH/MM3 0.1 TH/MM3 Basophils # (Auto) 0.1 TH/MM3 0.0 TH/MM3 CBC Comment DIFF FINAL DIFF FINAL Differential Comment Blood Urea Nitrogen 23 MG/DL 14 MG/DL Creatinine 0.76 MG/DL 0.62 MG/DL Random Glucose 86 MG/DL 111 MG/DL Total Protein 6.4 GM/DL 5.0 GM/DL Albumin 3.8 GM/DL 2.7 GM/DL Calcium Level 8.3 MG/DL 7.5 MG/DL Alkaline Phosphatase 85 U/L 68 U/L Aspartate Amino Transf (AST/SGOT) 37 U/L 27 U/L Alanine Aminotransferase (ALT/SGPT) 27 U/L 34 U/L Total Bilirubin 0.6 MG/DL 0.3 MG/DL Sodium Level 141 MEQ/L 144 MEQ/L Potassium Level 4.1 MEQ/L 3.5 MEQ/L Chloride Level 109 MEQ/L 113 MEQ/L Carbon Dioxide Level 20.6 MEQ/L 26.1 MEQ/L Anion Gap 11 MEQ/L 5 MEQ/L Estimat Glomerular Filtration Rate 91 ML/MIN 115 ML/MIN Lactic Acid Level 3.6 mmol/L 0.8 mmol/L 0.7 mmol/L Total Creatine Kinase 136 U/L Creatine Kinase MB 2.5 NG/ML Troponin I LESS THAN 0.02 NG/ML Lipase 81 U/L Test 03/01/17 15:21 Imaging Last Impressions Abdomen/Pelvis CT 02/28/17 1421 Signed Impressions: Service Date/Time: Tuesday, February 28, 2017 16:50 - CONCLUSION: Moderate prominent spleen otherwise negative Khurram Lane MD FACR Chest X-Ray 02/28/17 0000 Signed Impressions: Service Date/Time: Tuesday, February 28, 2017 16:15 - CONCLUSION: No acute disease. Johnnie Mishra Jr., MD Objective Remarks GENERAL: Awake alert oriented talkative and cooperative appears younger than stated age SKIN: Warm and dry. Multiple tattoos HEAD: Atraumatic. Normocephalic. EYES: Pupils equal and round. No scleral icterus. No injection or drainage. Extraocular muscles intact ENT: No nasal bleeding or discharge. Mucous membranes pink and moist. Tongue is midline NECK: Trachea midline. No JVD. Supple CARDIOVASCULAR: Regular rate and rhythm. S1 and S2 no S3 or S4 RESPIRATORY: No accessory muscle use. Clear to auscultation. Breath sounds equal bilaterally. GASTROINTESTINAL: Abdomen soft, non-tender, nondistended. Hepatic and splenic margins not palpable. MUSCULOSKELETAL: Extremities without clubbing, cyanosis, or edema. No obvious deformities. NEUROLOGICAL: Awake and alert. No obvious cranial nerve deficits. Motor grossly within normal limits. Five out of 5 muscle strength in the arms and legs. Normal speech. PSYCHIATRIC: Appropriate mood and affect; insight and judgment normal. Medications and IVs Current Medications Ondansetron HCl (Zofran Inj) 4 mg ONCE ONCE IVP Last administered on 15:53; Start 02/28/17 at 14:30; Stop 02/28/17 at 14:31; Status DC Pantoprazole Sodium (Protonix Inj) 40 mg ONCE ONCE IVP Last administered on 15:53; Start 02/28/17 at 14:30; Stop 02/28/17 at 14:31; Status DC Sodium Chloride 1,000 ml @ 1,000 mls/hr Q1H IV Last administered on 15:52; Start 02/28/17 at 14:21; Stop 02/28/17 at 15:20; Status DC Sodium Chloride (NS Flush) 2 ml UNSCH PRN IV FLUSH FLUSH AFTER USING IV ACCESS ; Start 02/28/17 at 14:30; Stop 02/28/17 at 18:49; Status DC Vancomycin HCl 1000 mg/Sodium Chloride 250 ml @ 250 mls/hr ONCE STAT IV Last administered on 02/28/17 17:16; Start 02/28/17 at 16:05; Stop 02/28/17 at 17 :04; Status DC Piperacillin Sod/ Tazobactam Sod 100 ml @ 200 mls/hr ONCE STAT IV Last administered on 02/28/17 19:08; Start 02/28/17 at 16:05; Stop 02/28/17 at 16 :34; Status DC Sodium Chloride 1,000 ml @ 999 mls/hr BOLUS ONCE IV Last administered on 17:16; Start 02/28/17 at 16:30; Stop 02/28/17 at 17:30; Status DC Iohexol (Omnipaque 350 Inj) 70 ml STK-MED ONCE IVCONTRAST Last administered on 02/28/17 14:12; Start 02/28/17 at 14:12; Stop 02/28/17 at 17:00; Status DC Sodium Chloride (NS Flush) 2 ml UNSCH PRN IV FLUSH FLUSH AFTER USING IV ACCESS ; Start 02/28/17 at 18:45 Sodium Chloride (NS Flush) 2 ml BID IV FLUSH Last administered on 02/28/17 21 :00; Start 02/28/17 at 21:00 Acetaminophen (Tylenol) 650 mg Q4H PRN PO TEMP > 100.4; Start 02/28/17 at 18: 45 Ondansetron HCl (Zofran Inj) 4 mg Q6H PRN IVP NAUSEA OR VOMITING; Start at 18:45 Naloxone HCl (Narcan Inj) 0.4 mg UNSCH PRN IV PUSH SEE LABEL COMMENTS; Start 02/28/17 at 18:45 Pharmacy Profile Note 0 ml @ 0 mls/hr UNSCH OTHER ; Start 02/28/17 at 22:45 Vancomycin HCl 1000 mg/Sodium Chloride 250 ml @ 250 mls/hr Q12H IV ; Start at 04:00; Status Cancel Piperacillin Sod/ Tazobactam Sod 50 ml @ 100 mls/hr Q6H IV Last administered on 03/01/17 15:20; Start 03/01/17 at 02:00 Morphine Sulfate (Morphine Inj) 2 mg Q3H PRN IV PUSH pain 6-10 Last administered on 03/01/17 12:33; Start 02/28/17 at 22:45 Zolpidem Tartrate (Ambien) 5 mg HS PRN PO INSOMNIA; Start 02/28/17 at 22:45 Sodium Chloride 1,000 ml @ 75 mls/hr [id number] IV Last administered on 12:20; Start 02/28/17 at 23:00 Vancomycin HCl 700 mg/Sodium Chloride 257 ml @ 250 mls/hr ONCE ONCE IV Last administered on 03/01/17 05:08; Start 03/01/17 at 05:00; Stop 03/01/17 at 06 :01; Status DC Miscellaneous Information SPECIFIC LAB TO BE DRAWN:VANCO TROUGH DATE TO BE DRBrooklynn.. ONCE ONCE .XX ; Start 03/02/17 at 04:45; Stop 03/02/17 at 04:46 Vancomycin HCl 700 mg/Sodium Chloride 257 ml @ 250 mls/hr Q12H IV ; Start at 17:00 A/P Problem List: (1) Sepsis ICD Code: A41.9 - Sepsis, unspecified organism Status: Acute (2) Splenomegaly ICD Code: R16.1 - Splenomegaly, not elsewhere classified Status: Acute (3) Opiate use ICD Code: F11.90 - Opioid use, unspecified, uncomplicated Status: Acute Assessment and Plan Assessment/plan: 1. Sepsis Unidentified source Patient with leukocytosis and lactic acid of 3.6, repeat lactic acid wnl Urine, CXR, CT of the abdomen/pelvis all within normal limits Vancomycin/Zosyn Blood cultures pending Monitor for signs of shock IVFs Has continued to improve. 2. Chronic Suboxone use for chronic pain Patient will take her home Suboxone dosing for chronic pain Morphine for breakthrough pain FEN Regular diet Electrolytes: Monitor and replete when necessary NS at 75 cc/hr SCDs A.m. labs Check a Monospot Seen with female RN in attendance Discharge Planning Await cultures so far no source Problem Qualifiers (1) Sepsis: Qualified Codes: A41.9 - Sepsis, unspecified organism Khurram Mccormick DO Mar 01, 2017 16:50
[2017-03-01 17:17] LABS: MONO II RAPID INTERNAL CONTROL POSITIVE
[2017-03-01] MEDS: VANCOMYCIN INJ 700 MG in SODIUM CHLOR 0.9% 250 ML INJ 250 ML IV SCH (17:38)
[2017-03-02] VITALS: BP 107/66; PULSE 68; RESP 18; TEMP 96.8; O2SAT 99
[2017-03-02] MEDS: MORPHINE SULFATE 2 MG/ML INJ IV PUSH PRN ×3 (00:32→08:08)
[2017-03-02 00:54] VITALS: PULSE 95
[2017-03-02] MEDS: SODIUM CHLOR 0.9% 1000 ML INJ 1,000 ML IV SCH (01:40)
[2017-03-02] MEDS: PIPERACIL-TAZO 3.375 GM PREMIX 50 ML IV SCH ×2 (03:12→08:08)
[2017-03-02 04:00] VITALS: BP 100/58; PULSE 63; RESP 18; TEMP 97; O2SAT 97
[2017-03-02] MEDS ORDERED: PHARMACY ORDERED LAB ONE (04:45)
[2017-03-02 06:08] LABS: ALT (GPT) 36 U/L (10-53); ANION GAP 6 MEQ/L (5-15); AST (GOT) 27 U/L (15-37); BICARBONATE 26.3 MEQ/L (21.0-32.0); BLOOD UREA NITROGEN 8 MG/DL (7-18); CHLORIDE 114 MEQ/L (98-107); GLOMERULAR FILTRATION RATE 134 ML/MIN (>89); MAGNESIUM 1.6 MG/DL (1.5-2.5); POTASSIUM 3.6 MEQ/L (3.5-5.1); SODIUM (NA) 146 MEQ/L (136-145)
[2017-03-02 06:16] LABS: ALKALINE PHOSPHATASE 63 U/L (45-117); FREE T4 1.06 NG/DL (0.76-1.46); TOTAL BILIRUBIN ADULT 0.3 MG/DL (0.2-1.0)
[2017-03-02] MEDS: VANCOMYCIN INJ 700 MG in SODIUM CHLOR 0.9% 250 ML INJ 250 ML IV SCH (06:28)
[2017-03-02 06:40] LABS: AUTOMATED NEUTROPHIL # 2.2 TH/MM3 (1.8-7.7); BASOPHIL % 0.3 % (0.0-2.0); EOSINOPHIL # 0.1 TH/MM3 (0-0.4); EOSINOPHIL % 3.2 % (0.0-4.0); HEMATOCRIT 33.5 % (35.0-46.0); HEMO FLAGS DIFF FINAL; LYMPH % 42.5 % (9.0-44.0); MEAN CELL VOLUME 93.6 FL (80.0-100.0); MEAN CORPUSCULAR HEMOGLOBIN 32.2 PG (27.0-34.0); MEAN CORPUSCULAR HGB CONC 34.4 % (32.0-36.0); MONO % 5.5 % (0.0-8.0); NEUT % 48.5 % (16.0-70.0); PLATELET COUNT 159 TH/MM3 (150-450); RED BLOOD COUNT 3.58 MIL/MM3 (4.00-5.30); RED CELL DISTRIBUTION WIDTH 12.3 % (11.6-17.2); WHITE BLOOD COUNT 4.6 TH/MM3 (4.0-11.0)
[2017-03-02 08:00] VITALS: BP 120/78; PULSE 67; RESP 16; TEMP 97.9; O2SAT 99
[2017-03-02] MEDS: SODIUM CHLORIDE 0.9% FLUSH 10 ML FLUSH IV FLUSH SCH (08:08)
[2017-03-02] MEDS ORDERED: oxyCODONE/ACETAMINOPHEN 5 MG/325 MG TAB PO PRN (09:00)
[2017-03-02] MEDS ORDERED: ACETAMINOPHEN 325 MG TAB PO PRN (09:00)
[2017-03-02 10:04] LABS: HEMOGLOBIN A1a 1.2 %; HEMOGLOBIN A1b 0.7 %; HEMOGLOBIN Ao 85.4 %; HEMOGLOBIN F 1.2 %; HEMOGLOBIN LA1C 2.1 %; HEMOGLOBIN P3 3.6 %
--- NOTE | 2017-03-02 11:30 | HHI.PR ---
Subjective Remarks 26-year-old female presented to the emergency department for evaluation of chest pain that radiated to her back, and abdominal pain. The patient describes her chest pain is substernal and sharp. She states it feels as though a knife is going through her chest to her back. She endorses nausea/ vomiting 1. Has subjective fever/chills. The patient was brought to the emergency department via EMS for being lethargic and drowsy. The patient is on Suboxone but denies taking any illicit drugs. She was found to have a leukocytosis with a WBC count of 17.4. Lactic acid on arrival was 3.6. UA and chest x-ray within normal limits. CT of the abdomen/ pelvis shows a moderately prominent spleen but was negative for acute findings. 03-01 patient states she is chronically on Suboxone from Dr. Lam States that she does not do any IV drug use States she is on Suboxone due to chronic pain and has been on it for 3 years and no attempt has been made to wean her off Feels much better today White blood cell count is down to within normal limits Will monitor tomorrow and get a.m. labs If she is improved hopefully can be discharged home tomorrow No source so far Seen with female RN in attendance 03-02 PATIENT IS FEELING MUCH BETTER WANTS TO GO HOME TOOK MORPHINE EARLIER TODAY NEEDS TO FOLLOW UP WITH HER PCP REGARDING HER PAIN MEDICATIONS HAS HYPOTHYROIDISM WHICH RUNS IN HER FAMILY WILL DOSE LOW DOSE SYNTHROID DC TO HOME TODAY NOTE WRITTEN FOR PCP Objective Vitals Vital Signs Date Time Temp Pulse Resp B/P (MAP) Pulse Ox O2 Delivery O2 Flow Rate FiO2 03/02/17 08:00 97.9 67 16 120/78 (92) 99 03/02/17 04:00 97.0 63 18 100/58 (72) 97 03/02/17 00:54 95 03/02/17 00:00 96.8 68 18 107/66 (80) 99 03/01/17 20:00 98.0 84 18 112/64 (80) 98 03/01/17 16:00 97.3 74 16 98/61 (73) 96 03/01/17 16:00 83 03/01/17 12:00 67 03/01/17 12:00 96.1 67 16 89/57 (68) 96 I/O 12/19/17 12/1903/01/17 03/02/17 03/02/17 03/02/17 07:00 15:00 23:00 07:00 15:00 23:00 Intake Total 240 ml 1000 ml 1107 ml 770 ml Balance 240 ml 1000 ml 1107 ml 770 ml Intake Oral 240 ml 800 ml 720 ml IV Total 1000 ml 307 ml 50 ml # Voids 3 3 2 # Bowel Movements 0 0 Result Diagram: 03/02/17 0515 03/02/17 0515 Other Results Laboratory Tests Test 02/28/17 15:00 02/28/17 15:20 02/28/17 18:30 03/01/17 10:37 Urine Color YELLOW Urine Turbidity CLEAR Urine pH 5.5 Urine Specific [place] 1.023 Urine Protein TRACE mg/dL Urine Glucose (UA) NEG mg/dL Urine Ketones 40 mg/dL Urine Occult Blood NEG Urine Nitrite NEG Urine Bilirubin NEG Urine Urobilinogen LESS THAN 2.0 MG/DL Urine Leukocyte Esterase NEG Urine RBC 1 /hpf Urine WBC LESS THAN 1 /hpf Urine Squamous Epithelial Cells <1 /hpf Urine Mucus FEW /lpf Microscopic Urinalysis Comment CULT NOT INDICATED White Blood Count 17.4 TH/MM3 8.9 TH/MM3 Red Blood Count 4.50 MIL/MM3 3.89 MIL/MM3 Hemoglobin 13.9 GM/DL 12.4 GM/DL Hematocrit 42.2 % 36.5 % Mean Corpuscular Volume 93.8 FL 93.8 FL Mean Corpuscular Hemoglobin 30.8 PG 32.0 PG Mean Corpuscular Hemoglobin Concent 32.8 % 34.1 % Red Cell Distribution Width 12.9 % 12.5 % Platelet Count 255 TH/MM3 197 TH/MM3 Mean Platelet Volume 8.2 FL 8.0 FL Neutrophils (%) (Auto) 81.5 % 70.9 % Lymphocytes (%) (Auto) 11.6 % 22.0 % Monocytes (%) (Auto) 4.0 % 5.4 % Eosinophils (%) (Auto) 2.6 % 1.5 % Basophils (%) (Auto) 0.3 % 0.2 % Neutrophils # (Auto) 14.2 TH/MM3 6.3 TH/MM3 Lymphocytes # (Auto) 2.0 TH/MM3 2.0 TH/MM3 Monocytes # (Auto) 0.7 TH/MM3 0.5 TH/MM3 Eosinophils # (Auto) 0.4 TH/MM3 0.1 TH/MM3 Basophils # (Auto) 0.1 TH/MM3 0.0 TH/MM3 CBC Comment DIFF FINAL DIFF FINAL Differential Comment Blood Urea Nitrogen 23 MG/DL 14 MG/DL Creatinine 0.76 MG/DL 0.62 MG/DL Random Glucose 86 MG/DL 111 MG/DL Total Protein 6.4 GM/DL 5.0 GM/DL Albumin 3.8 GM/DL 2.7 GM/DL Calcium Level 8.3 MG/DL 7.5 MG/DL Alkaline Phosphatase 85 U/L 68 U/L Aspartate Amino Transf (AST/SGOT) 37 U/L 27 U/L Alanine Aminotransferase (ALT/SGPT) 27 U/L 34 U/L Total Bilirubin 0.6 MG/DL 0.3 MG/DL Sodium Level 141 MEQ/L 144 MEQ/L Potassium Level 4.1 MEQ/L 3.5 MEQ/L Chloride Level 109 MEQ/L 113 MEQ/L Carbon Dioxide Level 20.6 MEQ/L 26.1 MEQ/L Anion Gap 11 MEQ/L 5 MEQ/L Estimat Glomerular Filtration Rate 91 ML/MIN 115 ML/MIN Lactic Acid Level 3.6 mmol/L 0.8 mmol/L 0.7 mmol/L Total Creatine Kinase 136 U/L Creatine Kinase MB 2.5 NG/ML Troponin I LESS THAN 0.02 NG/ML Lipase 81 U/L Test 03/01/17 15:21 03/02/17 05:15 Monoscreen NEG White Blood Count 4.6 TH/MM3 Red Blood Count 3.58 MIL/MM3 Hemoglobin 11.5 GM/DL Hematocrit 33.5 % Mean Corpuscular Volume 93.6 FL Mean Corpuscular Hemoglobin 32.2 PG Mean Corpuscular Hemoglobin Concent 34.4 % Red Cell Distribution Width 12.3 % Platelet Count 159 TH/MM3 Mean Platelet Volume 8.2 FL Neutrophils (%) (Auto) 48.5 % Lymphocytes (%) (Auto) 42.5 % Monocytes (%) (Auto) 5.5 % Eosinophils (%) (Auto) 3.2 % Basophils (%) (Auto) 0.3 % Neutrophils # (Auto) 2.2 TH/MM3 Lymphocytes # (Auto) 2.0 TH/MM3 Monocytes # (Auto) 0.3 TH/MM3 Eosinophils # (Auto) 0.1 TH/MM3 Basophils # (Auto) 0.0 TH/MM3 CBC Comment DIFF FINAL Differential Comment Blood Urea Nitrogen 8 MG/DL Creatinine 0.54 MG/DL Random Glucose 88 MG/DL Total Protein 5.0 GM/DL Albumin 2.6 GM/DL Calcium Level 7.6 MG/DL Phosphorus Level 2.3 MG/DL Magnesium Level 1.6 MG/DL Alkaline Phosphatase 63 U/L Aspartate Amino Transf (AST/SGOT) 27 U/L Alanine Aminotransferase (ALT/SGPT) 36 U/L Total Bilirubin 0.3 MG/DL Sodium Level 146 MEQ/L Potassium Level 3.6 MEQ/L Chloride Level 114 MEQ/L Carbon Dioxide Level 26.3 MEQ/L Anion Gap 6 MEQ/L Estimat Glomerular Filtration Rate 134 ML/MIN Hemoglobin A1c 5.5 % Free Thyroxine 1.06 NG/DL Thyroid Stimulating Hormone 3rd Gen 5.310 uIU/ML Vancomycin Level Trough 7.0 MCG/ML Imaging Last Impressions Abdomen/Pelvis CT 02/28/17 1421 Signed Impressions: Service Date/Time: Tuesday, February 28, 2017 16:50 - CONCLUSION: Moderate prominent spleen otherwise negative Khurram Lane MD FACR Chest X-Ray 02/28/17 0000 Signed Impressions: Service Date/Time: Tuesday, February 28, 2017 16:15 - CONCLUSION: No acute disease. Johnnie Mishra Jr., MD Objective Remarks GENERAL: Awake alert oriented talkative and cooperative appears younger than stated age SKIN: Warm and dry. Multiple tattoos HEAD: Atraumatic. Normocephalic. EYES: Pupils equal and round. No scleral icterus. No injection or drainage. Extraocular muscles intact ENT: No nasal bleeding or discharge. Mucous membranes pink and moist. Tongue is midline NECK: Trachea midline. No JVD. Supple CARDIOVASCULAR: Regular rate and rhythm. S1 and S2 no S3 or S4 RESPIRATORY: No accessory muscle use. Clear to auscultation. Breath sounds equal bilaterally. GASTROINTESTINAL: Abdomen soft, non-tender, nondistended. Hepatic and splenic margins not palpable. MUSCULOSKELETAL: Extremities without clubbing, cyanosis, or edema. No obvious deformities. NEUROLOGICAL: Awake and alert. No obvious cranial nerve deficits. Motor grossly within normal limits. Five out of 5 muscle strength in the arms and legs. Normal speech. PSYCHIATRIC: Appropriate mood and affect; insight and judgment normal. Procedures NONE Medications and IVs Current Medications Ondansetron HCl (Zofran Inj) 4 mg ONCE ONCE IVP Last administered on 15:53; Start 02/28/17 at 14:30; Stop 02/28/17 at 14:31; Status DC Pantoprazole Sodium (Protonix Inj) 40 mg ONCE ONCE IVP Last administered on 15:53; Start 02/28/17 at 14:30; Stop 02/28/17 at 14:31; Status DC Sodium Chloride 1,000 ml @ 1,000 mls/hr Q1H IV Last administered on 15:52; Start 02/28/17 at 14:21; Stop 02/28/17 at 15:20; Status DC Sodium Chloride (NS Flush) 2 ml UNSCH PRN IV FLUSH FLUSH AFTER USING IV ACCESS ; Start 02/28/17 at 14:30; Stop 02/28/17 at 18:49; Status DC Vancomycin HCl 1000 mg/Sodium Chloride 250 ml @ 250 mls/hr ONCE STAT IV Last administered on 02/28/17 17:16; Start 02/28/17 at 16:05; Stop 02/28/17 at 17 :04; Status DC Piperacillin Sod/ Tazobactam Sod 100 ml @ 200 mls/hr ONCE STAT IV Last administered on 02/28/17 19:08; Start 02/28/17 at 16:05; Stop 02/28/17 at 16 :34; Status DC Sodium Chloride 1,000 ml @ 999 mls/hr BOLUS ONCE IV Last administered on 17:16; Start 02/28/17 at 16:30; Stop 02/28/17 at 17:30; Status DC Iohexol (Omnipaque 350 Inj) 70 ml STK-MED ONCE IVCONTRAST Last administered on 02/28/17 14:12; Start 02/28/17 at 14:12; Stop 02/28/17 at 17:00; Status DC Sodium Chloride (NS Flush) 2 ml UNSCH PRN IV FLUSH FLUSH AFTER USING IV ACCESS ; Start 02/28/17 at 18:45 Sodium Chloride (NS Flush) 2 ml BID IV FLUSH Last administered on 03/01/17 21 :08; Start 02/28/17 at 21:00 Acetaminophen (Tylenol) 650 mg Q4H PRN PO TEMP > 100.4; Start 02/28/17 at 18: 45 Ondansetron HCl (Zofran Inj) 4 mg Q6H PRN IVP NAUSEA OR VOMITING; Start at 18:45 Naloxone HCl (Narcan Inj) 0.4 mg UNSCH PRN IV PUSH SEE LABEL COMMENTS; Start 02/28/17 at 18:45 Pharmacy Profile Note 0 ml @ 0 mls/hr UNSCH OTHER ; Start 02/28/17 at 22:45 Vancomycin HCl 1000 mg/Sodium Chloride 250 ml @ 250 mls/hr Q12H IV ; Start at 04:00; Status Cancel Piperacillin Sod/ Tazobactam Sod 50 ml @ 100 mls/hr Q6H IV Last administered on 03/02/17 08:08; Start 03/01/17 at 02:00 Morphine Sulfate (Morphine Inj) 2 mg Q3H PRN IV PUSH pain 6-10 Last administered on 03/02/17 08:08; Start 02/28/17 at 22:45 Zolpidem Tartrate (Ambien) 5 mg HS PRN PO INSOMNIA; Start 02/28/17 at 22:45 Sodium Chloride 1,000 ml @ 75 mls/hr [id number] IV Last administered on 12:20; Start 02/28/17 at 23:00 Vancomycin HCl 700 mg/Sodium Chloride 257 ml @ 250 mls/hr ONCE ONCE IV Last administered on 03/01/17 05:08; Start 03/01/17 at 05:00; Stop 03/01/17 at 06 :01; Status DC Miscellaneous Information SPECIFIC LAB TO BE DRAWN:VANCO TROUGH DATE TO BE DR... ONCE ONCE .XX ; Start 03/02/17 at 04:45; Stop 03/02/17 at 04:46; Status DC Vancomycin HCl 700 mg/Sodium Chloride 257 ml @ 250 mls/hr Q12H IV Last administered on 03/02/17 06:28; Start 03/01/17 at 17:00; Stop 03/02/17 at 09 :41; Status DC Oxycodone/ Acetaminophen (Percocet 5-325 Mg) 1 tab Q6H PRN PO pain 5 to 10; Start 03/02/17 at 09:00 Acetaminophen (Tylenol) 650 mg Q6H PRN PO headache pain 1 to 4; Start at 09:00 Vancomycin HCl 750 mg/Sodium Chloride 257.5 ml @ 250 mls/hr Q8H IV ; Start at 14:00 Miscellaneous Information SPECIFIC LAB TO BE DRAWN:VANCOMYCIN TROUGH DATE TO... ONCE ONCE .XX ; Start 03/03/17 at 13:45; Stop 03/03/17 at 13:46 A/P Problem List: (1) Sepsis ICD Code: A41.9 - Sepsis, unspecified organism Status: Acute (2) Splenomegaly ICD Code: R16.1 - Splenomegaly, not elsewhere classified Status: Acute (3) Opiate use ICD Code: F11.90 - Opioid use, unspecified, uncomplicated Status: Acute Assessment and Plan Assessment/plan: 1. Sepsis Unidentified source Patient with leukocytosis and lactic acid of 3.6, repeat lactic acid wnl Urine, CXR, CT of the abdomen/pelvis all within normal limits Vancomycin/Zosyn Blood cultures pending Monitor for signs of shock IVFs Has continued to improve. RESOLVED-LABS HAVE NORMALIZED SWITCH TO AUGMENTIN FOR 5 MORE DAYS HYPOTHYROIDISM START 25MCG PO DAILY 2. Chronic Suboxone use for chronic pain Patient will take her home Suboxone dosing for chronic pain Morphine for breakthrough pain NOTE FOR PCP MUCH IMPROVED DC TO HOME FEN Regular diet Electrolytes: Monitor and replete when necessary NS at 75 cc/hr SCDs Check a Monospot WAS NEGATIVE Seen with female RN in attendance Discharge Planning NO GROWTH DC TO HOME Problem Qualifiers (1) Sepsis: Qualified Codes: A41.9 - Sepsis, unspecified organism Khurram Mccormick DO Mar 02, 2017 11:30
[2017-03-02] MEDS ORDERED: AUGM500T7 PO (11:34)
[2017-03-02] MEDS ORDERED: SYNT25TA PO (11:34)
--- NOTE | 2017-03-02 11:36 | HHI.DS ---
Discharge Summary Admission Date Feb 28, 2017 at 18:08 Discharge Date: Mar 02, 2017 Admitting Diagnosis sepsis, abdominal pain (1) Sepsis ICD Code: A41.9 - Sepsis, unspecified organism Diagnosis: Principal Status: Resolved (2) Splenomegaly ICD Code: R16.1 - Splenomegaly, not elsewhere classified Diagnosis: Secondary Status: Acute (3) Opiate use ICD Code: F11.90 - Opioid use, unspecified, uncomplicated Status: Acute Procedures NONE Brief History - From Admission 26-year-old female presented to the emergency department for evaluation of chest pain that radiated to her back, and abdominal pain. The patient describes her chest pain is substernal and sharp. She states it feels as though a knife is going through her chest to her back. She endorses nausea/ vomiting 1. Has subjective fever/chills. The patient was brought to the emergency department via EMS for being lethargic and drowsy. The patient is on Suboxone but denies taking any illicit drugs. She was found to have a leukocytosis with a WBC count of 17.4. Lactic acid on arrival was 3.6. UA and chest x-ray within normal limits. CT of the abdomen/ pelvis shows a moderately prominent spleen but was negative for acute findings. CBC/BMP: 03/02/17 0515 03/02/17 0515 Significant Findings Laboratory Tests Test 02/28/17 15:00 02/28/17 15:20 02/28/17 18:30 03/01/17 10:37 Urine Ketones 40 mg/dL (NEG) Urine Mucus FEW /lpf (OCC) White Blood Count 17.4 TH/MM3 (4.0-11.0) Neutrophils (%) (Auto) 81.5 % (16.0-70.0) 70.9 % (16.0-70.0) Neutrophils # (Auto) 14.2 TH/MM3 (1.8-7.7) Blood Urea Nitrogen 23 MG/DL (7-18) Calcium Level 8.3 MG/DL (8.5-10.1) 7.5 MG/DL (8.5-10.1) Chloride Level 109 MEQ/L (98-107) 113 MEQ/L (98-107) Carbon Dioxide Level 20.6 MEQ/L (21.0-32.0) Lactic Acid Level 3.6 mmol/L (0.4-2.0) Troponin I LESS THAN 0.02 NG/ML Red Blood Count 3.89 MIL/MM3 (4.00-5.30) Random Glucose 111 MG/DL (74-106) Total Protein 5.0 GM/DL (6.4-8.2) Albumin 2.7 GM/DL (3.4-5.0) Test 03/01/17 15:21 03/02/17 05:15 Red Blood Count 3.58 MIL/MM3 (4.00-5.30) Hemoglobin 11.5 GM/DL (11.6-15.3) Hematocrit 33.5 % (35.0-46.0) Total Protein 5.0 GM/DL (6.4-8.2) Albumin 2.6 GM/DL (3.4-5.0) Calcium Level 7.6 MG/DL (8.5-10.1) Phosphorus Level 2.3 MG/DL (2.5-4.9) Sodium Level 146 MEQ/L (136-145) Chloride Level 114 MEQ/L (98-107) Thyroid Stimulating Hormone 3rd Gen 5.310 uIU/ML (0.358-3.740) Imaging Last Impressions Abdomen/Pelvis CT 02/28/17 1421 Signed Impressions: Service Date/Time: Tuesday, February 28, 2017 16:50 - CONCLUSION: Moderate prominent spleen otherwise negative Khurram Lane MD FACR Chest X-Ray 02/28/17 0000 Signed Impressions: Service Date/Time: Tuesday, February 28, 2017 16:15 - CONCLUSION: No acute disease. Johnnie Mishra Jr., MD PE at Discharge GENERAL: Awake alert oriented talkative and cooperative appears younger than stated age SKIN: Warm and dry. Multiple tattoos HEAD: Atraumatic. Normocephalic. EYES: Pupils equal and round. No scleral icterus. No injection or drainage. Extraocular muscles intact ENT: No nasal bleeding or discharge. Mucous membranes pink and moist. Tongue is midline NECK: Trachea midline. No JVD. Supple CARDIOVASCULAR: Regular rate and rhythm. S1 and S2 no S3 or S4 RESPIRATORY: No accessory muscle use. Clear to auscultation. Breath sounds equal bilaterally. GASTROINTESTINAL: Abdomen soft, non-tender, nondistended. Hepatic and splenic margins not palpable. MUSCULOSKELETAL: Extremities without clubbing, cyanosis, or edema. No obvious deformities. NEUROLOGICAL: Awake and alert. No obvious cranial nerve deficits. Motor grossly within normal limits. Five out of 5 muscle strength in the arms and legs. Normal speech. PSYCHIATRIC: Appropriate mood and affect; insight and judgment normal. Hospital Course 26-year-old female presented to the emergency department for evaluation of chest pain that radiated to her back, and abdominal pain. The patient describes her chest pain is substernal and sharp. She states it feels as though a knife is going through her chest to her back. She endorses nausea/ vomiting 1. Has subjective fever/chills. The patient was brought to the emergency department via EMS for being lethargic and drowsy. The patient is on Suboxone but denies taking any illicit drugs. She was found to have a leukocytosis with a WBC count of 17.4. Lactic acid on arrival was 3.6. UA and chest x-ray within normal limits. CT of the abdomen/ pelvis shows a moderately prominent spleen but was negative for acute findings. 12-19 patient states she is chronically on Suboxone from Dr. Lam States that she does not do any IV drug use States she is on Suboxone due to chronic pain and has been on it for 3 years and no attempt has been made to wean her off Feels much better today White blood cell count is down to within normal limits Will monitor tomorrow and get a.m. labs If she is improved hopefully can be discharged home tomorrow No source so far Seen with female RN in attendance 12-20 PATIENT IS FEELING MUCH BETTER WANTS TO GO HOME TOOK MORPHINE EARLIER TODAY NEEDS TO FOLLOW UP WITH HER PCP REGARDING HER PAIN MEDICATIONS HAS HYPOTHYROIDISM WHICH RUNS IN HER FAMILY WILL DOSE LOW DOSE SYNTHROID DC TO HOME TODAY NOTE WRITTEN FOR PCP AUGMENTIN 500MG TID FOR 5 DAYS Pt Condition on Discharge: Good Discharge Disposition: Discharge Home Discharge Time: <= 30 minutes Discharge Instructions DIET: Follow Instructions for: As Tolerated, No Restrictions Speech Therapy-Diet Recommends: Regular Activities you can perform: Regular-No Restrictions Follow up Referrals: PCP Follow-up - Today with Delfino Lam MD New Medications: Amoxicillin-Clavulanate (Augmentin) 500-125 mg Tab 500 MG PO Q8H for Infection for 5 Days, #15 TAB 0 Refills Levothyroxine (Synthroid) 25 Mcg Tab 25 MCG PO DAILY for Thyroid, #30 TAB 0 Refills Continued Medications: Buprenorphine (Buprenorphine) 8 Mg Subl 4 MG SL BID, TAB.SL Khurram Mccormick DO Mar 02, 2017 11:36
[2017-03-02] MEDS ORDERED: VANCOMYCIN INJ 750 MG in SODIUM CHLOR 0.9% 250 ML INJ 250 ML IV SCH (14:00)
[2017-03-03] MEDS ORDERED: PHARMACY ORDERED LAB ONE (13:45)
== END 2017-03-02 13:01 | disposition home or self-care (01) | DRG 872 ==
LOC: NEPE 14:11 → NEDA 18:08 → N07B 19:49
PROVIDERS: ADMIT Hospitalist; ATTEND Hospitalist
DX: A41.9 Sepsis, unspecified organism (principal); R16.1 Splenomegaly, not elsewhere classified; F11.90 Opioid use, unspecified, uncomplicated; G89.29 Other chronic pain; E03.9 Hypothyroidism, unspecified; Z72.0 Tobacco use
CPT/HCPCS: 71010; 74177; 80053; 80202; 81001; 82550; 82552; 83036; 83605; 83690; 83735; 84100; 84439; 84443; 84484; 84703; 85025; 86308; 87040; 93005; 96361; 96365; 96375; C9113; J2270; J2405; J2543; J3370; J7030; J7050; Q9967